=== PATIENT | female | born 1950 | race Caucasian/White ===

== ENCOUNTER 2023-08-23 18:55 | Inpatient (IN) | payer OTHER, MEDICAID ==
[~2023-08-23] VITALS: Ht 154.9 cm; Wt 87.3 kg
[2023-08-23 19:34] VITALS: BP_SYST 83; PULSE 90; RESP 22; TEMP 97.3; O2SAT 98
[2023-08-23] MEDS ORDERED: NACL 0.9% 2,000 ML IV ONE (19:45)
[2023-08-23 19:59] LABS: INR 1.4 (0.8-1.2); PROTHROMBIN TIME 14.5 SECS (9.5-12.5)
[2023-08-23 20:05] LABS: ALANINE AMINOTRANSFERASE 7 U/L (12-78); ALBUMIN 1.6 g/dL (3.4-4.8); ANION GAP 15 (5-15); ASPARTATE AMINOTRANSFERASE 21 U/L (10-37); CALCIUM 8.6 mg/dL (8.4-11.0); CARBON DIOXIDE 16 mmol/L (23-29); CHLORIDE 103 mmol/L (98-107); CREATINE KINASE, TOTAL 28 U/L (26-192); CREATININE 5.83 mg/dL (0.55-1.30); GLUCOSE 162 mg/dL (74-106); SODIUM SERUM 134 mmol/L (136-145); TOTAL BILIRUBIN 1.5 mg/dL (0.0-1.0); TOTAL PROTEIN, SERUM 6.5 g/dL (6.4-8.3)
[2023-08-23 20:19] LABS: BASOPHILS # (AUTO) 0.1 K/uL (0.0-0.2); BASOPHILS % (AUTO) 0.4 % (0.0-2.0); EOSINOPHILS # (AUTO) 0.1 K/uL (0.0-0.4); EOSINOPHILS % (AUTO) 0.4 % (0.0-4.0); HEMOGLOBIN 9.4 g/dL (12.0-16.0); LYMPHOCYTES # (AUTO) 2.5 K/uL (1.0-5.5); LYMPHOCYTES % (AUTO) 20.2 % (20.5-51.5); MEAN CORPUSCULAR HEMOGLOBIN 30 pg (27-31); MEAN CORPUSCULAR HGB CONC 31 % (32-36); MEAN CORPUSCULAR VOLUME 95 fL (79.0-98.0); MONOCYTES # (AUTO) 1.1 K/uL (0.0-1.0); MONOCYTES % (AUTO) 8.5 % (1.7-9.3); NEUTROPHILS # (AUTO) 8.7 K/uL (1.8-7.7); NEUTROPHILS % (AUTO) 70.5 % (40.0-70.0); PLATELET COUNT (AUTO) 596 K/uL (130-430); RED BLOOD CELL COUNT(AUTO) 3.14 MIL/uL (4.2-6.2); RED CELL DISTRIBUTION WIDTH 15.8 % (9.0-15.0); WHITE BLOOD COUNT (AUTO) 12.4 K/uL (4.8-10.8)
[2023-08-23 20:37] LABS: POTASSIUM 6.2 mmol/L (3.5-5.1); UREA NITROGEN, BLOOD 109 mg/dL (8-21)
[2023-08-23] MEDS ORDERED: KETAMINE HCL IN 0.9 % NACL 50 MG/5 ML SYRINGE ONE (20:45)
[2023-08-23] MEDS ORDERED: KETAMINE HCL IN 0.9 % NACL 50 MG/5 ML SYRINGE IVP ONE (20:45)
[2023-08-23] MEDS ORDERED: NOREPINEPHRINE BITARTRATE 4 MG in NS 246 ML IV ONE (20:45)
[2023-08-23] MEDS ORDERED: NOREPINEPHRINE 4 MG/4 ML VIAL IV ONE (20:46)
[2023-08-23 21:15] LABS: BILIRUBIN,URINE NEGATIVE (NEGATIVE); BLOOD, URINE 2+ (NEGATIVE); CLARITY/URINE Turbid (CLEAR); GLUCOSE,URINE NEGATIVE (NEGATIVE); KETONES,URINE 1+ (NEGATIVE); LEUKOCYTE ESTERASE ,URINE 3+ (NEGATIVE); NITRITE, URINE NEGATIVE (NEGATIVE); PH,URINE 5.5 (5.0-8.0); PROTEIN URINE 3+ (NEGATIVE); UROBILINOGEN,URINE 0.2 (0.2-1.0)
[2023-08-23] MEDS ORDERED: SODIUM POLYSTYRENE SULFONATE 15 GM/60 ML UDBTL PO ONE ×2 (21:30→22:00)
[2023-08-23] MEDS ORDERED: DEXTROSE 50% JECT 50 ML DISP.SYRIN IVP ONE (21:30)
[2023-08-23] MEDS ORDERED: INSULIN REGULAR, HUMAN 10 UNITS/0.1 ML, 3 ML VIAL IVP ONE (21:30)
[2023-08-23] MEDS ORDERED: SODIUM BICARBONATE 8.4% JECT 50 MEQ/50 ML SYRINGE IVP ONE (21:30)
[2023-08-23] MEDS ORDERED: LORazepam 2 MG/ML VIAL IVP ONE (21:30)
[2023-08-23] MEDS ORDERED: cefTRIAXone 1 GM in D5W 50 ML IV ONE (21:45)
[2023-08-23 21:53] LABS: COLOR,URINE BROWN (YELLOW)
[2023-08-23] MEDS ORDERED: MULT-1117 PO (21:54)
[2023-08-23] MEDS ORDERED: FLUT10.67 NAS (21:54)
[2023-08-23] MEDS ORDERED: LISI10TA29 PO (21:54)
[2023-08-23] MEDS ORDERED: NA P230E RC (21:54)
[2023-08-23] MEDS ORDERED: [UNRECOGNIZED DRUG - CODE] PO (21:54)
[2023-08-23] MEDS ORDERED: PANT20TA2 PO (21:54)
[2023-08-23] MEDS ORDERED: SSREG (21:54)
[2023-08-23] MEDS ORDERED: CALC-740 PO (21:54)
[2023-08-23] MEDS ORDERED: PREG50CA64 PO (21:54)
[2023-08-23] MEDS ORDERED: TRAM50TA PO (21:54)
[2023-08-23] MEDS ORDERED: CIPR-260 PO (21:54)
[2023-08-23] MEDS ORDERED: DIPH25TA62 PO (21:54)
[2023-08-23] MEDS ORDERED: ASCO500C18 PO (21:54)
[2023-08-23] MEDS ORDERED: BISA10SU77 (21:54)
[2023-08-23] MEDS ORDERED: MOM PO (21:54)
[2023-08-23] MEDS ORDERED: LIP20 PO (21:54)
[2023-08-23] MEDS ORDERED: LORA10TA7 PO (21:54)
[2023-08-23] MEDS ORDERED: IPRA3AMP19 INH (21:54)
[2023-08-23] MEDS ORDERED: FENO145T PO (21:54)
[2023-08-23] MEDS ORDERED: cefTRIAXone 1 GM VIAL ONE (21:56)
[2023-08-23] MEDS ORDERED: POTASSIUM CHLORIDE 10 MEQ in NACL 0.9% 1,000 ML IV SCH (22:00)
[2023-08-23 22:11] LABS: BACTERIA,URINE MANY /HPF (None Seen); RBC,URINE 20-50 /HPF (0-3); WBC,URINE >100 /HPF (0-3)
[2023-08-23 22:12] LABS: MUCUS,URINE None Seen /LPF (None Seen)
[2023-08-23 22:35] VITALS: BP_SYST 96; PULSE 100; RESP 16; TEMP 97.7; O2SAT 99
[2023-08-23 23:00] VITALS: BP_SYST 92; PULSE 99; RESP 14; TEMP 97.7; O2SAT 100
[2023-08-24] VITALS (28 sets, daily range): BP systolic 67–130; PULSE 60–106; RESP 11–21; TEMP 96.9–97.9; O2SAT 93–100
[2023-08-24] MEDS ORDERED: NOREPINEPHRINE 4 MG/4 ML VIAL IV ONE ×2 (00:19→05:24)
[2023-08-24] MEDS: PANTOPRAZOLE SODIUM 40 MG/VIAL (PROTONIX) IVP SCH ×3 (00:22→20:06)
[2023-08-24] MEDS: D5NS 1,000 ML IV SCH ×4 (00:23→17:30)
[2023-08-24] MEDS: INSULIN REGULAR, HUMAN 100 UNITS/ML, 3 ML VIAL (humuLIN R) SUBCUT PRN ×5 (00:40→23:41)
[2023-08-24] MEDS ORDERED: CEFEPIME 1 GM/VIAL (MAXIPIME) ONE (00:59)
[2023-08-24] MEDS: CEFEPIME 1 GM in D5W 50 ML IV SCH ×3 (01:31→20:06)
[2023-08-24] MEDS: LevALBUTEROL HCL 1.25 MG/0.5 ML *CONC.* VIAL.NEB (XOPENEX CONC.) INH SCH ×4 (01:58→19:47)
[2023-08-24 06:05] LABS: BASOPHILS # (AUTO) 0.1 K/uL (0.0-0.2); BASOPHILS % (AUTO) 0.5 % (0.0-2.0); EOSINOPHILS # (AUTO) 0.1 K/uL (0.0-0.4); EOSINOPHILS % (AUTO) 0.5 % (0.0-4.0); HEMATOCRIT 31.2 % (36-48); HEMOGLOBIN 9.4 g/dL (12.0-16.0); LYMPHOCYTES # (AUTO) 2.6 K/uL (1.0-5.5); LYMPHOCYTES % (AUTO) 16.9 % (20.5-51.5); MEAN CORPUSCULAR HEMOGLOBIN 29 pg (27-31); MEAN CORPUSCULAR HGB CONC 30 % (32-36); MEAN CORPUSCULAR VOLUME 98 fL (79.0-98.0); MONOCYTES # (AUTO) 1.4 K/uL (0.0-1.0); MONOCYTES % (AUTO) 9.1 % (1.7-9.3); NEUTROPHILS # (AUTO) 11.1 K/uL (1.8-7.7); PLATELET COUNT (AUTO) 667 K/uL (130-430); RED CELL DISTRIBUTION WIDTH 16.4 % (9.0-15.0); WHITE BLOOD COUNT (AUTO) 15.3 K/uL (4.8-10.8)
[2023-08-24] MEDS: NOREPINEPHRINE BITARTRATE 4 MG in NS 246 ML IV PRN ×3 (06:12→12:34)
[2023-08-24 06:22] LABS: ANION GAP 17 (5-15); CARBON DIOXIDE 16 mmol/L (23-29); CHLORIDE 109 mmol/L (98-107); CREATININE 5.73 mg/dL (0.55-1.30); GLUCOSE 328 mg/dL (74-106); POTASSIUM 5.4 mmol/L (3.5-5.1); SODIUM SERUM 142 mmol/L (136-145); UREA NITROGEN, BLOOD 97 mg/dL (8-21)
[2023-08-24] MEDS ORDERED: SODIUM BICARBONATE 8.4% JECT 50 MEQ/50 ML SYRINGE IVP ONE (09:15)
[2023-08-24] MEDS ORDERED: SODIUM POLYSTYRENE SULFONATE 15 GM/60 ML UDBTL PO ONE (09:15)
[2023-08-24] MEDS: NOREPINEPHRINE BITARTRATE 8 MG in NS 242 ML IV PRN ×3 (15:33→22:39)
[2023-08-24] MEDS: ENOXAPARIN SODIUM 30 MG/0.3 ML SYRINGE SUBCUT SCH (20:06)
[2023-08-25] VITALS (27 sets, daily range): BP systolic 99–133; PULSE 97–109; RESP 13–22; TEMP 97.3–98; O2SAT 89–100
[2023-08-25] MEDS: D5NS 1,000 ML IV SCH ×4 (00:26→17:43)
[2023-08-25] MEDS: LevALBUTEROL HCL 1.25 MG/0.5 ML *CONC.* VIAL.NEB (XOPENEX CONC.) INH SCH ×4 (00:55→19:15)
[2023-08-25] MEDS: INSULIN REGULAR, HUMAN 100 UNITS/ML, 3 ML VIAL (humuLIN R) SUBCUT PRN ×3 (05:05→17:58)
[2023-08-25] MEDS: NOREPINEPHRINE BITARTRATE 8 MG in NS 242 ML IV PRN ×2 (05:09→11:36)
[2023-08-25 05:33] LABS: BASOPHILS % (AUTO) 0.2 % (0.0-2.0); EOSINOPHILS # (AUTO) 0.1 K/uL (0.0-0.4); EOSINOPHILS % (AUTO) 0.8 % (0.0-4.0); HEMATOCRIT 29.2 % (36-48); HEMOGLOBIN 8.7 g/dL (12.0-16.0); LYMPHOCYTES # (AUTO) 1.8 K/uL (1.0-5.5); LYMPHOCYTES % (AUTO) 12.4 % (20.5-51.5); MEAN CORPUSCULAR HEMOGLOBIN 29 pg (27-31); MEAN CORPUSCULAR HGB CONC 30 % (32-36); MEAN CORPUSCULAR VOLUME 97 fL (79.0-98.0); MONOCYTES # (AUTO) 1.4 K/uL (0.0-1.0); MONOCYTES % (AUTO) 9.3 % (1.7-9.3); NEUTROPHILS # (AUTO) 11.3 K/uL (1.8-7.7); NEUTROPHILS % (AUTO) 77.3 % (40.0-70.0); PLATELET COUNT (AUTO) 587 K/uL (130-430); RED CELL DISTRIBUTION WIDTH 16.4 % (9.0-15.0); WHITE BLOOD COUNT (AUTO) 14.6 K/uL (4.8-10.8)
[2023-08-25 05:59] LABS: ALANINE AMINOTRANSFERASE 20 U/L (12-78); ALBUMIN 1.3 g/dL (3.4-4.8); ANION GAP 17 (5-15); ASPARTATE AMINOTRANSFERASE 33 U/L (10-37); CALCIUM 7.4 mg/dL (8.4-11.0); CARBON DIOXIDE 17 mmol/L (23-29); CHLORIDE 115 mmol/L (98-107); CREATININE 5.73 mg/dL (0.55-1.30); GLUCOSE 241 mg/dL (74-106); POTASSIUM 4.3 mmol/L (3.5-5.1); SODIUM SERUM 149 mmol/L (136-145); TOTAL BILIRUBIN 1.1 mg/dL (0.0-1.0); UREA NITROGEN, BLOOD 89 mg/dL (8-21)
[2023-08-25] MEDS: CEFEPIME 1 GM in D5W 50 ML IV SCH ×2 (08:22→20:22)
[2023-08-25] MEDS: PANTOPRAZOLE SODIUM 40 MG/VIAL (PROTONIX) IVP SCH ×2 (08:22→20:22)
[2023-08-25] MEDS: metroNIDAZOLE 250 mg/NS 50 ML IV SCH ×2 (14:58→21:35)
[2023-08-25] MEDS: ENOXAPARIN SODIUM 30 MG/0.3 ML SYRINGE SUBCUT SCH (20:30)
[2023-08-25] MEDS ORDERED: MUPIROCIN 1 GM OIN.PF.APP NS SCH (21:00)
[2023-08-25] MEDS: MUPIROCIN 2% TOPICAL OINTMENT 22 GM NS SCH (21:35)
[2023-08-26] VITALS (30 sets, daily range): BP systolic 83–128; PULSE 69–113; RESP 15–28; TEMP 97.1–97.7; O2SAT 90–100
[2023-08-26] MEDS: LevALBUTEROL HCL 1.25 MG/0.5 ML *CONC.* VIAL.NEB (XOPENEX CONC.) INH SCH ×4 (01:10→19:36)
[2023-08-26] MEDS: NOREPINEPHRINE BITARTRATE 8 MG in NS 242 ML IV PRN ×2 (01:21→18:16)
[2023-08-26] MEDS: D5NS 1,000 ML IV SCH ×4 (01:22→22:33)
[2023-08-26] MEDS: metroNIDAZOLE 250 mg/NS 50 ML IV SCH (05:09)
[2023-08-26] MEDS: INSULIN REGULAR, HUMAN 100 UNITS/ML, 3 ML VIAL (humuLIN R) SUBCUT PRN ×3 (05:12→18:16)
[2023-08-26 05:27] LABS: BASOPHILS # (AUTO) 0.1 K/uL (0.0-0.2); BASOPHILS % (AUTO) 0.5 % (0.0-2.0); EOSINOPHILS # (AUTO) 0.1 K/uL (0.0-0.4); EOSINOPHILS % (AUTO) 0.4 % (0.0-4.0); HEMATOCRIT 28.7 % (36-48); HEMOGLOBIN 8.5 g/dL (12.0-16.0); LYMPHOCYTES # (AUTO) 1.9 K/uL (1.0-5.5); LYMPHOCYTES % (AUTO) 10.3 % (20.5-51.5); MEAN CORPUSCULAR HEMOGLOBIN 29 pg (27-31); MEAN CORPUSCULAR HGB CONC 30 % (32-36); MEAN CORPUSCULAR VOLUME 98 fL (79.0-98.0); MONOCYTES # (AUTO) 0.8 K/uL (0.0-1.0); MONOCYTES % (AUTO) 4.5 % (1.7-9.3); NEUTROPHILS # (AUTO) 15.5 K/uL (1.8-7.7); NEUTROPHILS % (AUTO) 84.3 % (40.0-70.0); PLATELET COUNT (AUTO) 437 K/uL (130-430); RED BLOOD CELL COUNT(AUTO) 2.93 MIL/uL (4.2-6.2); RED CELL DISTRIBUTION WIDTH 16.6 % (9.0-15.0); WHITE BLOOD COUNT (AUTO) 18.4 K/uL (4.8-10.8)
[2023-08-26 06:19] LABS: ALANINE AMINOTRANSFERASE 21 U/L (12-78); ALBUMIN 1.1 g/dL (3.4-4.8); ANION GAP 18 (5-15); ASPARTATE AMINOTRANSFERASE 36 U/L (10-37); CARBON DIOXIDE 15 mmol/L (23-29); CHLORIDE 117 mmol/L (98-107); CREATININE 5.84 mg/dL (0.55-1.30); GLUCOSE 257 mg/dL (74-106); POTASSIUM 3.6 mmol/L (3.5-5.1); SODIUM SERUM 150 mmol/L (136-145); TOTAL BILIRUBIN 0.8 mg/dL (0.0-1.0); TOTAL PROTEIN, SERUM 5.4 g/dL (6.4-8.3); UREA NITROGEN, BLOOD 87 mg/dL (8-21)
[2023-08-26] MEDS: PANTOPRAZOLE SODIUM 40 MG/VIAL (PROTONIX) IVP SCH ×2 (08:08→21:22)
[2023-08-26] MEDS: CEFEPIME 1 GM in D5W 50 ML IV SCH ×2 (08:09→21:22)
[2023-08-26] MEDS: MUPIROCIN 2% TOPICAL OINTMENT 22 GM NS SCH ×2 (08:11→21:23)
[2023-08-26 10:57] LABS: BLOOD GAS BASE EXCESS -18.8 mmol/L (-3.0-3.0); BLOOD GAS PO2 79.4 mmHg (75.0-100.0)
[2023-08-26] MEDS ORDERED: ALBUMIN HUMAN 25% 100 ML IV ONE (11:00)
[2023-08-26 11:02] LABS: ABG O2 SAT% ESTIMATE 87.9 % (94.0-100.0); ALLEN'S TEST POSITIVE (P); BLOOD GAS HCO3 12.8 mmol/L (21.0-27.0); BLOOD GAS PCO2 53.7 mmHg (35.0-45.0); BLOOD GAS PH 6.995 (7.350-7.450)
[2023-08-26] MEDS ORDERED: LINEZOLID 300 ML IV ONE (11:30)
[2023-08-26] MEDS ORDERED: SODIUM BICARBONATE 8.4% JECT 50 MEQ/50 ML SYRINGE ONE (11:56)
[2023-08-26] MEDS ORDERED: SODIUM BICARBONATE 8.4% JECT 50 MEQ/50 ML SYRINGE IVP ONE (12:00)
[2023-08-26] MEDS ORDERED: ETOMIDATE 20 MG/ 10 ML VIAL (AMIDATE) IVP ONE (13:11)
[2023-08-26] MEDS ORDERED: VECURONIUM BROMIDE 10 MG/VIAL (NORCURON) IVP ONE (13:11)
[2023-08-26 13:50] LABS: BLOOD GAS PCO2 24.9 mmHg (35.0-45.0); BLOOD GAS PH 7.441 (7.350-7.450); BLOOD GAS PO2 146.4 mmHg (75.0-100.0)
[2023-08-26 13:55] LABS: ALLEN'S TEST POSITIVE (P); BLOOD GAS BASE EXCESS -5.6 mmol/L (-3.0-3.0); BLOOD GAS HCO3 16.6 mmol/L (21.0-27.0)
[2023-08-26] MEDS ORDERED: HEPARIN SODIUM,PORCINE 5,000 UNITS/ML VIAL MC ONE (15:30)
[2023-08-26] MEDS: LINEZOLID 300 ML IV SCH (20:05)
[2023-08-26] MEDS ORDERED: MENTHOL/ZINC OXIDE 113 GM OINT. TP PRN (20:45)
[2023-08-26] MEDS: ENOXAPARIN SODIUM 30 MG/0.3 ML SYRINGE SUBCUT SCH (21:22)
[2023-08-27] VITALS (31 sets, daily range): BP systolic 14–156; PULSE 68–116; RESP 22–30; TEMP 97.3–98.9; O2SAT 95–99
[2023-08-27] MEDS: LevALBUTEROL HCL 1.25 MG/0.5 ML *CONC.* VIAL.NEB (XOPENEX CONC.) INH SCH ×4 (01:12→19:25)
[2023-08-27 05:49] LABS: BASOPHILS # (AUTO) 0.1 K/uL (0.0-0.2); BASOPHILS % (AUTO) 0.4 % (0.0-2.0); EOSINOPHILS # (AUTO) 0.1 K/uL (0.0-0.4); EOSINOPHILS % (AUTO) 0.4 % (0.0-4.0); HEMATOCRIT 25.2 % (36-48); HEMOGLOBIN 7.8 g/dL (12.0-16.0); LYMPHOCYTES % (AUTO) 12.1 % (20.5-51.5); MEAN CORPUSCULAR HEMOGLOBIN 29 pg (27-31); MEAN CORPUSCULAR HGB CONC 31 % (32-36); MEAN CORPUSCULAR VOLUME 93 fL (79.0-98.0); NEUTROPHILS # (AUTO) 13.7 K/uL (1.8-7.7); NEUTROPHILS % (AUTO) 81.1 % (40.0-70.0); PLATELET COUNT (AUTO) 388 K/uL (130-430); RED BLOOD CELL COUNT(AUTO) 2.71 MIL/uL (4.2-6.2); RED CELL DISTRIBUTION WIDTH 16.5 % (9.0-15.0)
[2023-08-27 05:50] LABS: ANION GAP 15 (5-15); CARBON DIOXIDE 21 mmol/L (23-29); CHLORIDE 105 mmol/L (98-107); GLUCOSE 366 mg/dL (74-106); SODIUM SERUM 141 mmol/L (136-145); UREA NITROGEN, BLOOD 51 mg/dL (8-21)
[2023-08-27 06:02] LABS: POTASSIUM 2.5 mmol/L (3.5-5.1)
[2023-08-27 06:03] LABS: CALCIUM 6.9 mg/dL (8.4-11.0)
[2023-08-27 07:01] LABS: WHITE BLOOD COUNT (AUTO) 16.9 K/uL (4.8-10.8)
[2023-08-27] MEDS ORDERED: CALCIUM GLUC 1 GM/100ML-NACL 100 ML IV ONE (08:00)
[2023-08-27 08:06] LABS: HEPATITIS B SURFACE AG Negative (Negative); HEPATITIS C VIRUS AB Non Reactive (Non Reactive)
[2023-08-27] MEDS ORDERED: CALCIUM GLUCONATE 1 GM in NS 100 ML IV ONE ×2 (08:30→12:15)
[2023-08-27] MEDS: MUPIROCIN 2% TOPICAL OINTMENT 22 GM NS SCH ×2 (09:00→20:51)
[2023-08-27] MEDS: PANTOPRAZOLE SODIUM 40 MG/VIAL (PROTONIX) IVP SCH ×2 (09:00→20:30)
[2023-08-27] MEDS ORDERED: POTASSIUM CHLORIDE 20 MEQ/PKT PACKET PO ONE ×2 (09:00→13:00)
[2023-08-27] MEDS: NOREPINEPHRINE BITARTRATE 8 MG in NS 242 ML IV PRN (09:10)
[2023-08-27 10:05] LABS: ABG O2 SAT% ESTIMATE 97.9 % (94.0-100.0); BLOOD GAS HCO3 18.3 mmol/L (21.0-27.0); BLOOD GAS PCO2 27.1 mmHg (35.0-45.0); BLOOD GAS PH 7.448 (7.350-7.450); BLOOD GAS PO2 100.7 mmHg (75.0-100.0)
[2023-08-27 10:08] LABS: ALLEN'S TEST POSITIVE (P)
[2023-08-27] MEDS: CEFEPIME 1 GM in D5W 50 ML IV SCH ×2 (11:06→20:29)
[2023-08-27] MEDS: LINEZOLID 300 ML IV SCH ×2 (12:19→20:30)
[2023-08-27] MEDS: INSULIN REGULAR, HUMAN 100 UNITS/ML, 3 ML VIAL (humuLIN R) SUBCUT PRN ×2 (13:31→17:38)
[2023-08-27] MEDS: D5NS 1,000 ML IV SCH (13:48)
[2023-08-27] MEDS ORDERED: POTASSIUM CHLORIDE 20 MEQ/PKT PACKET ONE (14:05)
[2023-08-27] MEDS: PROPOFOL DRIP 100 ML IV PRN (15:44)
[2023-08-27] MEDS: ENOXAPARIN SODIUM 30 MG/0.3 ML SYRINGE SUBCUT SCH (20:30)
[2023-08-28] VITALS (36 sets, daily range): BP systolic 92–158; PULSE 61–101; RESP 18–27; TEMP 97–99.5; O2SAT 95–99
[2023-08-28] MEDS: INSULIN REGULAR, HUMAN 100 UNITS/ML, 3 ML VIAL (humuLIN R) SUBCUT PRN ×5 (00:29→23:48)
[2023-08-28] MEDS: LevALBUTEROL HCL 1.25 MG/0.5 ML *CONC.* VIAL.NEB (XOPENEX CONC.) INH SCH ×4 (01:30→19:24)
[2023-08-28] MEDS: PROPOFOL DRIP 100 ML IV PRN ×2 (03:17→20:25)
[2023-08-28 06:52] LABS: BASOPHILS # (AUTO) 0.1 K/uL (0.0-0.2); BASOPHILS % (AUTO) 0.3 % (0.0-2.0); EOSINOPHILS # (AUTO) 0.1 K/uL (0.0-0.4); EOSINOPHILS % (AUTO) 0.5 % (0.0-4.0); HEMOGLOBIN 7.7 g/dL (12.0-16.0); LYMPHOCYTES # (AUTO) 2.7 K/uL (1.0-5.5); LYMPHOCYTES % (AUTO) 12.4 % (20.5-51.5); MEAN CORPUSCULAR HEMOGLOBIN 29 pg (27-31); MEAN CORPUSCULAR HGB CONC 32 % (32-36); MEAN CORPUSCULAR VOLUME 91 fL (79.0-98.0); MONOCYTES # (AUTO) 1.1 K/uL (0.0-1.0); MONOCYTES % (AUTO) 5.2 % (1.7-9.3); NEUTROPHILS # (AUTO) 17.9 K/uL (1.8-7.7); NEUTROPHILS % (AUTO) 81.6 % (40.0-70.0); PLATELET COUNT (AUTO) 455 K/uL (130-430); RED BLOOD CELL COUNT(AUTO) 2.63 MIL/uL (4.2-6.2); RED CELL DISTRIBUTION WIDTH 16.1 % (9.0-15.0)
[2023-08-28 07:23] LABS: ALANINE AMINOTRANSFERASE 18 U/L (12-78); ALBUMIN 1.3 g/dL (3.4-4.8); AMYLASE 19 U/L (0-100); ANION GAP 11 (5-15); ASPARTATE AMINOTRANSFERASE 26 U/L (10-37); CARBON DIOXIDE 25 mmol/L (23-29); CHLORIDE 101 mmol/L (98-107); CREATININE 3.26 mg/dL (0.55-1.30); GLUCOSE 283 mg/dL (74-106); POTASSIUM 3.8 mmol/L (3.5-5.1); SODIUM SERUM 137 mmol/L (136-145); TOTAL BILIRUBIN 0.6 mg/dL (0.0-1.0); TOTAL PROTEIN, SERUM 5.3 g/dL (6.4-8.3); UREA NITROGEN, BLOOD 42 mg/dL (8-21)
[2023-08-28 07:31] LABS: TOTAL IRON BIND. CAPACITY 107 ug/dL (250-450)
[2023-08-28 07:44] LABS: CALCIUM 6.8 mg/dL (8.4-11.0)
[2023-08-28] MEDS: MUPIROCIN 2% TOPICAL OINTMENT 22 GM NS SCH ×2 (08:36→20:26)
[2023-08-28] MEDS: CEFEPIME 1 GM in D5W 50 ML IV SCH ×2 (08:36→20:23)
[2023-08-28] MEDS: PANTOPRAZOLE SODIUM 40 MG/VIAL (PROTONIX) IVP SCH ×2 (08:36→20:26)
[2023-08-28 08:39] LABS: WHITE BLOOD COUNT (AUTO) 21.9 K/uL (4.8-10.8)
[2023-08-28] MEDS ORDERED: CALCIUM GLUCONATE 2 GM in NS 100 ML IV ONE (09:00)
[2023-08-28] MEDS: LINEZOLID 300 ML IV SCH ×2 (09:20→20:23)
[2023-08-28] MEDS: D5NS 1,000 ML IV SCH (09:48)
[2023-08-28] MEDS: ACETAMINOPHEN 325 MG TABLET PO PRN (13:45)
[2023-08-28] MEDS ORDERED: MORPHINE 2 MG/ML INJ. SYRINGE IVP PRN (19:30)
[2023-08-28] MEDS ORDERED: NALOXONE HCL 0.4 MG/ML AMP (NARCAN) IVP PRN ×2 (19:30→19:45)
[2023-08-28] MEDS: ENOXAPARIN SODIUM 30 MG/0.3 ML SYRINGE SUBCUT SCH (20:26)
[2023-08-28] MEDS ORDERED: MEROPENEM 500 MG VIAL IV ONE (23:39)
[2023-08-28] MEDS: MEROPENEM 500 MG in NS 50 ML IV SCH (23:46)
[2023-08-29] VITALS (35 sets, daily range): BP systolic 102–152; PULSE 64–111; RESP 18–25; TEMP 96.9–99.2; O2SAT 94–99
[2023-08-29] MEDS: LevALBUTEROL HCL 1.25 MG/0.5 ML *CONC.* VIAL.NEB (XOPENEX CONC.) INH SCH ×4 (01:33→19:40)
[2023-08-29] MEDS: INSULIN REGULAR, HUMAN 100 UNITS/ML, 3 ML VIAL (humuLIN R) SUBCUT PRN ×2 (06:04→23:52)
[2023-08-29] MEDS: D5NS 1,000 ML IV SCH (06:05)
[2023-08-29] MEDS: PROPOFOL DRIP 100 ML IV PRN (06:12)
[2023-08-29 07:57] LABS: BASOPHILS # (AUTO) 0.1 K/uL (0.0-0.2); BASOPHILS % (AUTO) 0.6 % (0.0-2.0); EOSINOPHILS # (AUTO) 0.5 K/uL (0.0-0.4); EOSINOPHILS % (AUTO) 3.6 % (0.0-4.0); HEMATOCRIT 22.4 % (36-48); HEMOGLOBIN 7.1 g/dL (12.0-16.0); LYMPHOCYTES # (AUTO) 2.9 K/uL (1.0-5.5); LYMPHOCYTES % (AUTO) 20.5 % (20.5-51.5); MEAN CORPUSCULAR HEMOGLOBIN 29 pg (27-31); MEAN CORPUSCULAR HGB CONC 32 % (32-36); MEAN CORPUSCULAR VOLUME 92 fL (79.0-98.0); MONOCYTES # (AUTO) 0.8 K/uL (0.0-1.0); MONOCYTES % (AUTO) 5.8 % (1.7-9.3); NEUTROPHILS # (AUTO) 9.7 K/uL (1.8-7.7); NEUTROPHILS % (AUTO) 69.5 % (40.0-70.0); PLATELET COUNT (AUTO) 324 K/uL (130-430); RED BLOOD CELL COUNT(AUTO) 2.45 MIL/uL (4.2-6.2); RED CELL DISTRIBUTION WIDTH 16.2 % (9.0-15.0)
[2023-08-29 08:37] LABS: ALANINE AMINOTRANSFERASE 16 U/L (12-78); ALBUMIN 1.1 g/dL (3.4-4.8); ANION GAP 15 (5-15); ASPARTATE AMINOTRANSFERASE 23 U/L (10-37); CALCIUM 7.1 mg/dL (8.4-11.0); CARBON DIOXIDE 21 mmol/L (23-29); CHLORIDE 101 mmol/L (98-107); CREATININE 3.74 mg/dL (0.55-1.30); GLUCOSE 236 mg/dL (74-106); POTASSIUM 3.3 mmol/L (3.5-5.1); SODIUM SERUM 137 mmol/L (136-145); TOTAL BILIRUBIN 0.4 mg/dL (0.0-1.0); TOTAL PROTEIN, SERUM 4.9 g/dL (6.4-8.3); UREA NITROGEN, BLOOD 52 mg/dL (8-21)
[2023-08-29] MEDS: MEROPENEM 500 MG in NS 50 ML IV SCH ×2 (09:00→21:20)
[2023-08-29] MEDS: MUPIROCIN 2% TOPICAL OINTMENT 22 GM NS SCH ×2 (09:00→21:22)
[2023-08-29] MEDS: PANTOPRAZOLE SODIUM 40 MG/VIAL (PROTONIX) IVP SCH ×2 (09:00→21:21)
[2023-08-29] MEDS: LINEZOLID 300 ML IV SCH ×2 (09:00→22:06)
[2023-08-29] MEDS ORDERED: HEPARIN SODIUM,PORCINE 5,000 UNITS/ML VIAL ONE (09:41)
[2023-08-29 14:54] LABS: ABG O2 SAT% ESTIMATE 96.7 % (94.0-100.0); BLOOD GAS BASE EXCESS 3.6 mmol/L (-3.0-3.0); BLOOD GAS HCO3 26.2 mmol/L (21.0-27.0); BLOOD GAS PCO2 33.8 mmHg (35.0-45.0); BLOOD GAS PO2 78.8 mmHg (75.0-100.0)
[2023-08-29 14:57] LABS: ALLEN'S TEST POSITIVE (P); BLOOD GAS PH 7.508 (7.350-7.450)
[2023-08-29] MEDS: EPOETIN ALFA-EPBX 4,000 UNITS/ML VIAL SUBCUT SCH (17:00)
[2023-08-29] MEDS: ENOXAPARIN SODIUM 30 MG/0.3 ML SYRINGE SUBCUT SCH (21:21)
[2023-08-30] VITALS (32 sets, daily range): BP systolic 115–153; PULSE 71–98; RESP 11–26; TEMP 96.6–98.8; O2SAT 93–99
[2023-08-30] MEDS: LevALBUTEROL HCL 1.25 MG/0.5 ML *CONC.* VIAL.NEB (XOPENEX CONC.) INH SCH ×4 (00:29→19:53)
[2023-08-30] MEDS: D5NS 1,000 ML IV SCH ×3 (01:48→21:09)
[2023-08-30 02:07] LABS: FOLATE (FOLIC ACID) 4.9 ng/mL (>3.0)
[2023-08-30] MEDS: INSULIN REGULAR, HUMAN 100 UNITS/ML, 3 ML VIAL (humuLIN R) SUBCUT PRN ×2 (05:24→11:10)
[2023-08-30 06:02] LABS: BASOPHILS % (AUTO) 0.3 % (0.0-2.0); EOSINOPHILS # (AUTO) 0.6 K/uL (0.0-0.4); EOSINOPHILS % (AUTO) 3.9 % (0.0-4.0); HEMATOCRIT 23.9 % (36-48); HEMOGLOBIN 7.6 g/dL (12.0-16.0); LYMPHOCYTES # (AUTO) 2.7 K/uL (1.0-5.5); LYMPHOCYTES % (AUTO) 18.9 % (20.5-51.5); MEAN CORPUSCULAR HEMOGLOBIN 29 pg (27-31); MEAN CORPUSCULAR HGB CONC 32 % (32-36); MEAN CORPUSCULAR VOLUME 91 fL (79.0-98.0); MONOCYTES # (AUTO) 0.9 K/uL (0.0-1.0); MONOCYTES % (AUTO) 6.1 % (1.7-9.3); NEUTROPHILS % (AUTO) 70.8 % (40.0-70.0); PLATELET COUNT (AUTO) 300 K/uL (130-430); RED BLOOD CELL COUNT(AUTO) 2.62 MIL/uL (4.2-6.2); RED CELL DISTRIBUTION WIDTH 15.7 % (9.0-15.0); WHITE BLOOD COUNT (AUTO) 14.2 K/uL (4.8-10.8)
[2023-08-30 06:19] LABS: ALANINE AMINOTRANSFERASE 18 U/L (12-78); ALBUMIN 1.3 g/dL (3.4-4.8); ANION GAP 10 (5-15); ASPARTATE AMINOTRANSFERASE 25 U/L (10-37); CALCIUM 7.6 mg/dL (8.4-11.0); CARBON DIOXIDE 27 mmol/L (23-29); CHLORIDE 102 mmol/L (98-107); CREATININE 3.03 mg/dL (0.55-1.30); GLUCOSE 233 mg/dL (74-106); POTASSIUM 3.4 mmol/L (3.5-5.1); SODIUM SERUM 139 mmol/L (136-145); TOTAL BILIRUBIN 0.4 mg/dL (0.0-1.0); TOTAL PROTEIN, SERUM 5.4 g/dL (6.4-8.3); UREA NITROGEN, BLOOD 38 mg/dL (8-21)
[2023-08-30] MEDS: MEROPENEM 500 MG in NS 50 ML IV SCH ×2 (08:46→19:52)
[2023-08-30] MEDS: LINEZOLID 300 ML IV SCH (08:46)
[2023-08-30] MEDS: PANTOPRAZOLE SODIUM 40 MG/VIAL (PROTONIX) IVP SCH ×2 (08:46→19:53)
[2023-08-30] MEDS: MUPIROCIN 2% TOPICAL OINTMENT 22 GM NS SCH (09:12)
[2023-08-30] MEDS ORDERED: POTASSIUM CHLORIDE 20 MEQ/PKT PACKET PO ONE (11:30)
[2023-08-30] MEDS ORDERED: HEPARIN SODIUM,PORCINE 5,000 UNITS/ML VIAL ONE ×2 (16:58→17:00)
[2023-08-30] MEDS: MORPHINE 2 MG/ML INJ. SYRINGE IVP PRN (19:53)
[2023-08-31] VITALS (27 sets, daily range): BP systolic 108–153; PULSE 75–93; RESP 15–22; TEMP 97.2–98.1; O2SAT 87–100
[2023-08-31] MEDS: MORPHINE 2 MG/ML INJ. SYRINGE IVP PRN ×2 (00:03→04:04)
[2023-08-31] MEDS: LevALBUTEROL HCL 1.25 MG/0.5 ML *CONC.* VIAL.NEB (XOPENEX CONC.) INH SCH ×4 (01:00→19:30)
[2023-08-31 05:55] LABS: BASOPHILS # (AUTO) 0.1 K/uL (0.0-0.2); BASOPHILS % (AUTO) 0.6 % (0.0-2.0); EOSINOPHILS # (AUTO) 0.5 K/uL (0.0-0.4); EOSINOPHILS % (AUTO) 3.3 % (0.0-4.0); LYMPHOCYTES # (AUTO) 3.3 K/uL (1.0-5.5); MEAN CORPUSCULAR HEMOGLOBIN 29 pg (27-31); MEAN CORPUSCULAR HGB CONC 31 % (32-36); MEAN CORPUSCULAR VOLUME 93 fL (79.0-98.0); MONOCYTES # (AUTO) 0.9 K/uL (0.0-1.0); MONOCYTES % (AUTO) 5.4 % (1.7-9.3); NEUTROPHILS # (AUTO) 11.6 K/uL (1.8-7.7); NEUTROPHILS % (AUTO) 70.7 % (40.0-70.0); PLATELET COUNT (AUTO) 261 K/uL (130-430); RED BLOOD CELL COUNT(AUTO) 2.29 MIL/uL (4.2-6.2); RED CELL DISTRIBUTION WIDTH 15.5 % (9.0-15.0); WHITE BLOOD COUNT (AUTO) 16.4 K/uL (4.8-10.8)
[2023-08-31 06:00] LABS: HEMOGLOBIN 6.6 g/dL (12.0-16.0)
[2023-08-31 06:04] LABS: HEMATOCRIT 21.4 % (36-48)
[2023-08-31 06:10] LABS: ALANINE AMINOTRANSFERASE 20 U/L (12-78); ALBUMIN 1.3 g/dL (3.4-4.8); ANION GAP 6 (5-15); ASPARTATE AMINOTRANSFERASE 30 U/L (10-37); CARBON DIOXIDE 31 mmol/L (23-29); CHLORIDE 103 mmol/L (98-107); CREATININE 2.52 mg/dL (0.55-1.30); GLUCOSE 175 mg/dL (74-106); SODIUM SERUM 140 mmol/L (136-145); TOTAL BILIRUBIN 0.4 mg/dL (0.0-1.0); UREA NITROGEN, BLOOD 32 mg/dL (8-21)
[2023-08-31] MEDS ORDERED: HEPARIN SODIUM,PORCINE 5,000 UNITS/ML VIAL MC SCH (09:00)
[2023-08-31] MEDS: PANTOPRAZOLE SODIUM 40 MG/VIAL (PROTONIX) IVP SCH ×2 (09:04→20:56)
[2023-08-31] MEDS: MEROPENEM 500 MG in NS 50 ML IV SCH ×2 (09:04→20:55)
[2023-08-31] MEDS: ACETAMINOPHEN 325 MG TABLET PO PRN ×2 (09:05→10:17)
[2023-08-31] MEDS: traMADol HCL HCL 50 MG TABLET (ULTRAM) PO PRN (13:14)
[2023-08-31] MEDS: FLUCONAZOLE 100 mg/ NS 50 ML IV SCH (13:15)
[2023-08-31] MEDS: EPOETIN ALFA-EPBX 4,000 UNITS/ML VIAL SUBCUT SCH (17:23)
[2023-08-31] MEDS: INSULIN REGULAR, HUMAN 100 UNITS/ML, 3 ML VIAL (humuLIN R) SUBCUT PRN (17:25)
[2023-08-31 19:44] LABS: HEMATOCRIT 31.3 % (36-48); HEMOGLOBIN 10.1 g/dL (12.0-16.0); MEAN CORPUSCULAR HEMOGLOBIN 29 pg (27-31); MEAN CORPUSCULAR HGB CONC 32 % (32-36); MEAN CORPUSCULAR VOLUME 90 fL (79.0-98.0); PLATELET COUNT (AUTO) 218 K/uL (130-430); RED BLOOD CELL COUNT(AUTO) 3.48 MIL/uL (4.2-6.2); RED CELL DISTRIBUTION WIDTH 15.6 % (9.0-15.0); WHITE BLOOD COUNT (AUTO) 14.3 K/uL (4.8-10.8)
[2023-08-31 21:28] LABS: BAND % (MANUAL) 1 % (0-6); BASOPHILS % (MANUAL) 0 % (0-2); EOSINOPHILS % (MANUAL) 8 % (0-7); LYMPHOCYTES % (MANUAL) 13 % (20-46); MONOCYTES % (MANUAL) 7 % (0-11); PLATELET ESTIMATE ADEQUATE (ADEQUATE); POLYCHROMASIA 1+
[2023-08-31 21:29] LABS: ANISOCYTOSIS 1+; OVALOCYTES FEW; STOMATOCYTES FEW; TEAR DROP CELLS MODERATE
[2023-09-01] VITALS (27 sets, daily range): BP systolic 122–171; PULSE 79–96; RESP 14–21; TEMP 96.7–97.9; O2SAT 89–98
[2023-09-01] MEDS: LevALBUTEROL HCL 1.25 MG/0.5 ML *CONC.* VIAL.NEB (XOPENEX CONC.) INH SCH ×4 (01:10→19:41)
[2023-09-01] MEDS: traMADol HCL HCL 50 MG TABLET (ULTRAM) PO PRN ×3 (05:03→13:35)
[2023-09-01 05:07] LABS: BASOPHILS # (AUTO) 0.1 K/uL (0.0-0.2); BASOPHILS % (AUTO) 0.5 % (0.0-2.0); EOSINOPHILS # (AUTO) 0.7 K/uL (0.0-0.4); EOSINOPHILS % (AUTO) 4.6 % (0.0-4.0); HEMOGLOBIN 9.6 g/dL (12.0-16.0); LYMPHOCYTES # (AUTO) 2.9 K/uL (1.0-5.5); LYMPHOCYTES % (AUTO) 20.1 % (20.5-51.5); MEAN CORPUSCULAR HEMOGLOBIN 29 pg (27-31); MEAN CORPUSCULAR HGB CONC 32 % (32-36); MEAN CORPUSCULAR VOLUME 90 fL (79.0-98.0); MONOCYTES # (AUTO) 0.8 K/uL (0.0-1.0); MONOCYTES % (AUTO) 5.8 % (1.7-9.3); PLATELET COUNT (AUTO) 201 K/uL (130-430); RED BLOOD CELL COUNT(AUTO) 3.35 MIL/uL (4.2-6.2); RED CELL DISTRIBUTION WIDTH 16.3 % (9.0-15.0); WHITE BLOOD COUNT (AUTO) 14.5 K/uL (4.8-10.8)
[2023-09-01 05:29] LABS: ALANINE AMINOTRANSFERASE 18 U/L (12-78); ALBUMIN 1.5 g/dL (3.4-4.8); ANION GAP 9 (5-15); ASPARTATE AMINOTRANSFERASE 24 U/L (10-37); CALCIUM 7.3 mg/dL (8.4-11.0); CARBON DIOXIDE 28 mmol/L (23-29); CHLORIDE 104 mmol/L (98-107); CREATININE 3.04 mg/dL (0.55-1.30); GLUCOSE 149 mg/dL (74-106); PHOSPHORUS 4.2 mg/dL (2.7-4.5); POTASSIUM 3.9 mmol/L (3.5-5.1); SODIUM SERUM 141 mmol/L (136-145); TOTAL BILIRUBIN 0.5 mg/dL (0.0-1.0); TOTAL PROTEIN, SERUM 5.2 g/dL (6.4-8.3); TRIGLYCERIDES 323 mg/dL (30-150); UREA NITROGEN, BLOOD 38 mg/dL (8-21)
[2023-09-01 07:06] LABS: QUANTIFERON TB GOLD Negative (Negative)
[2023-09-01] MEDS: PANTOPRAZOLE SODIUM 40 MG/VIAL (PROTONIX) IVP SCH ×2 (09:53→21:27)
[2023-09-01] MEDS: MEROPENEM 500 MG in NS 50 ML IV SCH ×2 (09:53→21:26)
[2023-09-01] MEDS: D5NS 1,000 ML IV SCH (10:35)
[2023-09-01] MEDS: FLUCONAZOLE 100 mg/ NS 50 ML IV SCH (11:41)
[2023-09-01] MEDS: INSULIN REGULAR, HUMAN 100 UNITS/ML, 3 ML VIAL (humuLIN R) SUBCUT PRN ×2 (11:57→18:24)
[2023-09-01 13:06] LABS: HEPATITIS B SURFACE AG Negative (Negative)
[2023-09-01] MEDS ORDERED: *TPN PER PHARMACY XX PRN (21:00)
[2023-09-01] MEDS ORDERED: MAGNESIUM SULFATE IV SCH ×6 (21:00)
[2023-09-01] MEDS ORDERED: TRACE ELEMENTS IV SCH ×6 (21:00)
[2023-09-01] MEDS ORDERED: TPN CENTRAL IV SCH ×6 (21:00)
[2023-09-01] MEDS ORDERED: MVI IV SCH ×6 (21:00)
[2023-09-01] MEDS ORDERED: [UNRECOGNIZED DRUG - OTHER] IV SCH ×6 (21:00)
[2023-09-02] VITALS (9 sets, daily range): BP systolic 122–166; PULSE 73–93; RESP 16–19; TEMP 97.1–98.6; O2SAT 93–97
[2023-09-02] MEDS: INSULIN REGULAR, HUMAN 100 UNITS/ML, 3 ML VIAL (humuLIN R) SUBCUT PRN ×3 (00:53→19:06)
[2023-09-02] MEDS: LevALBUTEROL HCL 1.25 MG/0.5 ML *CONC.* VIAL.NEB (XOPENEX CONC.) INH SCH ×4 (01:22→19:55)
[2023-09-02] MEDS ORDERED: *PPN PER PHARMACY XX PRN (06:30)
[2023-09-02] MEDS ORDERED: INSULIN REGULAR, HUMAN 100 UNITS/ML, 3 ML VIAL (humuLIN R) SUBCUT PRN (06:30)
[2023-09-02] MEDS ORDERED: DEXTROSE 50% JECT 50 ML DISP.SYRIN IVP PRN (06:30)
[2023-09-02 07:37] LABS: BASOPHILS # (AUTO) 0.1 K/uL (0.0-0.2); BASOPHILS % (AUTO) 0.4 % (0.0-2.0); EOSINOPHILS # (AUTO) 0.5 K/uL (0.0-0.4); EOSINOPHILS % (AUTO) 3.2 % (0.0-4.0); HEMATOCRIT 25.1 % (36-48); HEMOGLOBIN 7.9 g/dL (12.0-16.0); LYMPHOCYTES # (AUTO) 2.6 K/uL (1.0-5.5); LYMPHOCYTES % (AUTO) 18.9 % (20.5-51.5); MEAN CORPUSCULAR HEMOGLOBIN 29 pg (27-31); MEAN CORPUSCULAR HGB CONC 32 % (32-36); MEAN CORPUSCULAR VOLUME 90 fL (79.0-98.0); MONOCYTES # (AUTO) 0.9 K/uL (0.0-1.0); MONOCYTES % (AUTO) 6.4 % (1.7-9.3); NEUTROPHILS # (AUTO) 9.9 K/uL (1.8-7.7); NEUTROPHILS % (AUTO) 71.1 % (40.0-70.0); PLATELET COUNT (AUTO) 221 K/uL (130-430); RED BLOOD CELL COUNT(AUTO) 2.77 MIL/uL (4.2-6.2); WHITE BLOOD COUNT (AUTO) 13.9 K/uL (4.8-10.8)
[2023-09-02 07:42] LABS: ALANINE AMINOTRANSFERASE 17 U/L (12-78); ALBUMIN 1.5 g/dL (3.4-4.8); ANION GAP 8 (5-15); ASPARTATE AMINOTRANSFERASE 24 U/L (10-37); CARBON DIOXIDE 27 mmol/L (23-29); CHLORIDE 105 mmol/L (98-107); CREATININE 2.84 mg/dL (0.55-1.30); GLUCOSE 176 mg/dL (74-106); POTASSIUM 4.1 mmol/L (3.5-5.1); SODIUM SERUM 140 mmol/L (136-145); TOTAL BILIRUBIN 0.3 mg/dL (0.0-1.0); UREA NITROGEN, BLOOD 30 mg/dL (8-21)
[2023-09-02] MEDS: PANTOPRAZOLE SODIUM 40 MG/VIAL (PROTONIX) IVP SCH ×2 (10:00→21:18)
[2023-09-02] MEDS: D5NS 1,000 ML IV SCH (10:10)
[2023-09-02] MEDS: traMADol HCL HCL 50 MG TABLET (ULTRAM) PO PRN (13:36)
[2023-09-02] MEDS: FLUCONAZOLE 100 mg/ NS 50 ML IV SCH (13:40)
[2023-09-02] MEDS: KETOROLAC TROMETHAMINE 30 MG VIAL IVP PRN (16:05)
[2023-09-02] MEDS: EPOETIN ALFA-EPBX 4,000 UNITS/ML VIAL SUBCUT SCH (17:35)
[2023-09-02] MEDS: TPN PERIPHERAL IV SCH ×6 (21:17)
[2023-09-02] MEDS: TRACE ELEMENTS IV SCH ×6 (21:17)
[2023-09-02] MEDS: MVI IV SCH ×6 (21:17)
[2023-09-02] MEDS: MAGNESIUM SULFATE IV SCH ×6 (21:17)
[2023-09-02] MEDS: [UNRECOGNIZED DRUG - OTHER] IV SCH ×6 (21:17)
[2023-09-03] VITALS (7 sets, daily range): BP systolic 151–163; PULSE 75–96; RESP 16–19; TEMP 97.3–98.6; O2SAT 94–99
[2023-09-03] MEDS: INSULIN REGULAR, HUMAN 100 UNITS/ML, 3 ML VIAL (humuLIN R) SUBCUT PRN ×3 (00:53→18:02)
[2023-09-03] MEDS: LevALBUTEROL HCL 1.25 MG/0.5 ML *CONC.* VIAL.NEB (XOPENEX CONC.) INH SCH ×4 (01:41→20:05)
[2023-09-03] MEDS: D5NS 1,000 ML IV SCH (06:41)
[2023-09-03 07:21] LABS: BASOPHILS # (AUTO) 0.1 K/uL (0.0-0.2); BASOPHILS % (AUTO) 0.6 % (0.0-2.0); EOSINOPHILS # (AUTO) 0.4 K/uL (0.0-0.4); HEMATOCRIT 23.9 % (36-48); HEMOGLOBIN 7.5 g/dL (12.0-16.0); LYMPHOCYTES # (AUTO) 2.6 K/uL (1.0-5.5); LYMPHOCYTES % (AUTO) 19.1 % (20.5-51.5); MEAN CORPUSCULAR HEMOGLOBIN 29 pg (27-31); MEAN CORPUSCULAR HGB CONC 31 % (32-36); MEAN CORPUSCULAR VOLUME 91 fL (79.0-98.0); MONOCYTES % (AUTO) 7.2 % (1.7-9.3); NEUTROPHILS # (AUTO) 9.6 K/uL (1.8-7.7); NEUTROPHILS % (AUTO) 70.1 % (40.0-70.0); PLATELET COUNT (AUTO) 250 K/uL (130-430); RED BLOOD CELL COUNT(AUTO) 2.62 MIL/uL (4.2-6.2); RED CELL DISTRIBUTION WIDTH 15.7 % (9.0-15.0); WHITE BLOOD COUNT (AUTO) 13.8 K/uL (4.8-10.8)
[2023-09-03 07:34] LABS: ALANINE AMINOTRANSFERASE 15 U/L (12-78); ALBUMIN 1.5 g/dL (3.4-4.8); ANION GAP 8 (5-15); ASPARTATE AMINOTRANSFERASE 24 U/L (10-37); CALCIUM 7.1 mg/dL (8.4-11.0); CARBON DIOXIDE 27 mmol/L (23-29); CHLORIDE 104 mmol/L (98-107); CREATININE 3.38 mg/dL (0.55-1.30); GLUCOSE 174 mg/dL (74-106); PHOSPHORUS 3.9 mg/dL (2.7-4.5); POTASSIUM 3.9 mmol/L (3.5-5.1); SODIUM SERUM 139 mmol/L (136-145); TOTAL BILIRUBIN 0.3 mg/dL (0.0-1.0); UREA NITROGEN, BLOOD 38 mg/dL (8-21)
[2023-09-03] MEDS: PANTOPRAZOLE SODIUM 40 MG/VIAL (PROTONIX) IVP SCH ×2 (09:50→21:30)
[2023-09-03] MEDS: FLUCONAZOLE 100 mg/ NS 50 ML IV SCH (14:45)
[2023-09-03] MEDS: MVI IV SCH ×6 (21:33)
[2023-09-03] MEDS: TRACE ELEMENTS IV SCH ×6 (21:33)
[2023-09-03] MEDS: TPN PERIPHERAL IV SCH ×6 (21:33)
[2023-09-03] MEDS: [UNRECOGNIZED DRUG - OTHER] IV SCH ×6 (21:33)
[2023-09-03] MEDS: MAGNESIUM SULFATE IV SCH ×6 (21:33)
[2023-09-04] VITALS (9 sets, daily range): BP systolic 125–170; PULSE 89–92; RESP 18–20; TEMP 97–98.1; O2SAT 94–99
[2023-09-04] MEDS: LevALBUTEROL HCL 1.25 MG/0.5 ML *CONC.* VIAL.NEB (XOPENEX CONC.) INH SCH ×4 (01:30→19:42)
[2023-09-04] MEDS: D5NS 1,000 ML IV SCH ×2 (02:17→21:48)
[2023-09-04 06:41] LABS: BASOPHILS # (AUTO) 0.1 K/uL (0.0-0.2); BASOPHILS % (AUTO) 1.1 % (0.0-2.0); EOSINOPHILS # (AUTO) 0.5 K/uL (0.0-0.4); EOSINOPHILS % (AUTO) 5.2 % (0.0-4.0); HEMATOCRIT 22.5 % (36-48); HEMOGLOBIN 7.2 g/dL (12.0-16.0); LYMPHOCYTES # (AUTO) 2.7 K/uL (1.0-5.5); LYMPHOCYTES % (AUTO) 28.1 % (20.5-51.5); MEAN CORPUSCULAR HEMOGLOBIN 29 pg (27-31); MEAN CORPUSCULAR HGB CONC 32 % (32-36); MEAN CORPUSCULAR VOLUME 92 fL (79.0-98.0); MONOCYTES # (AUTO) 0.7 K/uL (0.0-1.0); MONOCYTES % (AUTO) 7.1 % (1.7-9.3); NEUTROPHILS # (AUTO) 5.6 K/uL (1.8-7.7); NEUTROPHILS % (AUTO) 58.5 % (40.0-70.0); PLATELET COUNT (AUTO) 264 K/uL (130-430); RED BLOOD CELL COUNT(AUTO) 2.45 MIL/uL (4.2-6.2); RED CELL DISTRIBUTION WIDTH 15.6 % (9.0-15.0); WHITE BLOOD COUNT (AUTO) 9.5 K/uL (4.8-10.8)
[2023-09-04 07:07] LABS: ALANINE AMINOTRANSFERASE 15 U/L (12-78); ALBUMIN 1.5 g/dL (3.4-4.8); ANION GAP 6 (5-15); ASPARTATE AMINOTRANSFERASE 25 U/L (10-37); CALCIUM 7.1 mg/dL (8.4-11.0); CARBON DIOXIDE 29 mmol/L (23-29); CHLORIDE 102 mmol/L (98-107); CREATININE 2.58 mg/dL (0.55-1.30); GLUCOSE 153 mg/dL (74-106); PHOSPHORUS 3.1 mg/dL (2.7-4.5); POTASSIUM 3.8 mmol/L (3.5-5.1); SODIUM SERUM 137 mmol/L (136-145); TOTAL BILIRUBIN 0.3 mg/dL (0.0-1.0); TOTAL PROTEIN, SERUM 5.1 g/dL (6.4-8.3); UREA NITROGEN, BLOOD 27 mg/dL (8-21)
[2023-09-04] MEDS: PANTOPRAZOLE SODIUM 40 MG/VIAL (PROTONIX) IVP SCH ×2 (09:46→21:26)
[2023-09-04] MEDS: INSULIN REGULAR, HUMAN 100 UNITS/ML, 3 ML VIAL (humuLIN R) SUBCUT PRN ×2 (11:46→18:15)
[2023-09-04] MEDS: FLUCONAZOLE 100 mg/ NS 50 ML IV SCH (12:21)
[2023-09-04] MEDS: KETOROLAC TROMETHAMINE 30 MG VIAL IVP PRN (15:18)
[2023-09-04] MEDS ORDERED: MAGNESIUM SULFATE IV SCH ×7 (21:00)
[2023-09-04] MEDS ORDERED: MVI IV SCH ×7 (21:00)
[2023-09-04] MEDS ORDERED: TRACE ELEMENTS IV SCH ×7 (21:00)
[2023-09-04] MEDS ORDERED: [UNRECOGNIZED DRUG - OTHER] IV SCH ×7 (21:00)
[2023-09-04] MEDS ORDERED: TPN PERIPHERAL IV SCH ×7 (21:00)
[2023-09-05] VITALS (7 sets, daily range): BP systolic 123–154; PULSE 88–94; RESP 19–24; TEMP 97.5–98.6; O2SAT 95–97
[2023-09-05] MEDS: LevALBUTEROL HCL 1.25 MG/0.5 ML *CONC.* VIAL.NEB (XOPENEX CONC.) INH SCH ×4 (01:44→19:58)
[2023-09-05 05:48] LABS: BASOPHILS # (AUTO) 0.1 K/uL (0.0-0.2); EOSINOPHILS # (AUTO) 0.4 K/uL (0.0-0.4); EOSINOPHILS % (AUTO) 4.6 % (0.0-4.0); LYMPHOCYTES # (AUTO) 2.5 K/uL (1.0-5.5); MEAN CORPUSCULAR HEMOGLOBIN 30 pg (27-31); MEAN CORPUSCULAR HGB CONC 33 % (32-36); MEAN CORPUSCULAR VOLUME 91 fL (79.0-98.0); MONOCYTES # (AUTO) 0.7 K/uL (0.0-1.0); MONOCYTES % (AUTO) 8.4 % (1.7-9.3); NEUTROPHILS # (AUTO) 4.9 K/uL (1.8-7.7); PLATELET COUNT (AUTO) 312 K/uL (130-430); RED BLOOD CELL COUNT(AUTO) 2.28 MIL/uL (4.2-6.2); RED CELL DISTRIBUTION WIDTH 16.1 % (9.0-15.0); WHITE BLOOD COUNT (AUTO) 8.7 K/uL (4.8-10.8)
[2023-09-05 06:09] LABS: HEMATOCRIT 20.7 % (36-48); HEMOGLOBIN 6.8 g/dL (12.0-16.0)
[2023-09-05 06:17] LABS: ALANINE AMINOTRANSFERASE 14 U/L (12-78); ALBUMIN 1.6 g/dL (3.4-4.8); ANION GAP 11 (5-15); ASPARTATE AMINOTRANSFERASE 26 U/L (10-37); CARBON DIOXIDE 26 mmol/L (23-29); CHLORIDE 98 mmol/L (98-107); CREATININE 3.09 mg/dL (0.55-1.30); GLUCOSE 132 mg/dL (74-106); POTASSIUM 3.5 mmol/L (3.5-5.1); SODIUM SERUM 135 mmol/L (136-145); TOTAL BILIRUBIN 0.3 mg/dL (0.0-1.0); TOTAL PROTEIN, SERUM 4.9 g/dL (6.4-8.3); UREA NITROGEN, BLOOD 37 mg/dL (8-21)
[2023-09-05] MEDS: PANTOPRAZOLE SODIUM 40 MG/VIAL (PROTONIX) IVP SCH (08:41)
[2023-09-05] MEDS: INSULIN REGULAR, HUMAN 100 UNITS/ML, 3 ML VIAL (humuLIN R) SUBCUT PRN (12:13)
[2023-09-05] MEDS: FLUCONAZOLE 100 mg/ NS 50 ML IV SCH (12:38)
[2023-09-05 13:26] LABS: ABG O2 SAT% ESTIMATE 96.6 % (94.0-100.0); BLOOD GAS BASE EXCESS -0.1 mmol/L (-3.0-3.0); BLOOD GAS HCO3 25.4 mmol/L (21.0-27.0); BLOOD GAS PCO2 44.8 mmHg (35.0-45.0); BLOOD GAS PH 7.372 (7.350-7.450); BLOOD GAS PO2 89.8 mmHg (75.0-100.0)
[2023-09-05 13:48] LABS: ALLEN'S TEST POSITIVE (P)
[2023-09-05] MEDS: EPOETIN ALFA-EPBX 4,000 UNITS/ML VIAL SUBCUT SCH (17:22)
[2023-09-05] MEDS: D5NS 1,000 ML IV SCH (17:23)
[2023-09-05] MEDS ORDERED: [UNRECOGNIZED DRUG - OTHER] IV SCH ×8 (21:00)
[2023-09-05] MEDS ORDERED: TPN PERIPHERAL IV SCH ×8 (21:00)
[2023-09-05] MEDS ORDERED: POTASSIUM CHLORIDE IV SCH ×8 (21:00)
[2023-09-05] MEDS ORDERED: SODIUM CHLORIDE IV SCH ×8 (21:00)
[2023-09-06] VITALS (8 sets, daily range): BP systolic 115–141; PULSE 84–89; RESP 18–22; TEMP 97.9–98.9; O2SAT 97–99
[2023-09-06] MEDS: LevALBUTEROL HCL 1.25 MG/0.5 ML *CONC.* VIAL.NEB (XOPENEX CONC.) INH SCH ×3 (01:13→19:00)
[2023-09-06] MEDS: PANTOPRAZOLE SODIUM 40 MG/VIAL (PROTONIX) IVP SCH ×3 (01:29→20:56)
[2023-09-06] MEDS: D5NS 1,000 ML IV SCH (01:42)
[2023-09-06 06:06] LABS: BASOPHILS # (AUTO) 0.1 K/uL (0.0-0.2); EOSINOPHILS # (AUTO) 0.4 K/uL (0.0-0.4); EOSINOPHILS % (AUTO) 5.8 % (0.0-4.0); HEMATOCRIT 30.8 % (36-48); HEMOGLOBIN 9.9 g/dL (12.0-16.0); LYMPHOCYTES # (AUTO) 1.8 K/uL (1.0-5.5); LYMPHOCYTES % (AUTO) 23.7 % (20.5-51.5); MEAN CORPUSCULAR HEMOGLOBIN 29 pg (27-31); MEAN CORPUSCULAR HGB CONC 32 % (32-36); MEAN CORPUSCULAR VOLUME 91 fL (79.0-98.0); MONOCYTES # (AUTO) 0.6 K/uL (0.0-1.0); MONOCYTES % (AUTO) 8.4 % (1.7-9.3); NEUTROPHILS # (AUTO) 4.5 K/uL (1.8-7.7); NEUTROPHILS % (AUTO) 61.1 % (40.0-70.0); PLATELET COUNT (AUTO) 323 K/uL (130-430); RED CELL DISTRIBUTION WIDTH 15.5 % (9.0-15.0); WHITE BLOOD COUNT (AUTO) 7.4 K/uL (4.8-10.8)
[2023-09-06 07:13] LABS: ALANINE AMINOTRANSFERASE 15 U/L (12-78); ALBUMIN 1.7 g/dL (3.4-4.8); ANION GAP 11 (5-15); ASPARTATE AMINOTRANSFERASE 28 U/L (10-37); CALCIUM 7.2 mg/dL (8.4-11.0); CARBON DIOXIDE 26 mmol/L (23-29); CHLORIDE 100 mmol/L (98-107); CREATININE 3.33 mg/dL (0.55-1.30); GLUCOSE 144 mg/dL (74-106); PHOSPHORUS 4.8 mg/dL (2.7-4.5); POTASSIUM 3.5 mmol/L (3.5-5.1); SODIUM SERUM 137 mmol/L (136-145); TOTAL BILIRUBIN 0.3 mg/dL (0.0-1.0); TOTAL PROTEIN, SERUM 5.2 g/dL (6.4-8.3); UREA NITROGEN, BLOOD 49 mg/dL (8-21)
[2023-09-06] MEDS: KETOROLAC TROMETHAMINE 30 MG VIAL IVP PRN ×3 (12:25→18:32)
[2023-09-06] MEDS: HEPARIN SODIUM,PORCINE 5,000 UNITS/ML VIAL MC PRN (12:28)
[2023-09-06] MEDS: FLUCONAZOLE 100 mg/ NS 50 ML IV SCH (12:35)
[2023-09-06] MEDS ORDERED: HEPARIN SODIUM,PORCINE 5,000 UNITS/ML VIAL IVP ONE (13:00)
[2023-09-06] MEDS: INSULIN REGULAR, HUMAN 100 UNITS/ML, 3 ML VIAL (humuLIN R) SUBCUT PRN (17:44)
[2023-09-06] MEDS ORDERED: POTASSIUM CHLORIDE IV SCH ×8 (21:00)
[2023-09-06] MEDS ORDERED: SODIUM CHLORIDE IV SCH ×8 (21:00)
[2023-09-06] MEDS ORDERED: [UNRECOGNIZED DRUG - OTHER] IV SCH ×8 (21:00)
[2023-09-06] MEDS ORDERED: TPN PERIPHERAL IV SCH ×8 (21:00)
[2023-09-07] VITALS (8 sets, daily range): BP systolic 148–160; PULSE 77–94; RESP 16–18; TEMP 97.4–98.4; O2SAT 91–98
[2023-09-07] MEDS: LevALBUTEROL HCL 1.25 MG/0.5 ML *CONC.* VIAL.NEB (XOPENEX CONC.) INH SCH ×4 (01:00→19:00)
[2023-09-07 06:40] LABS: ALANINE AMINOTRANSFERASE 16 U/L (12-78); ALBUMIN 1.8 g/dL (3.4-4.8); ANION GAP 9 (5-15); ASPARTATE AMINOTRANSFERASE 29 U/L (10-37); CALCIUM 8.5 mg/dL (8.4-11.0); CARBON DIOXIDE 27 mmol/L (23-29); CHLORIDE 102 mmol/L (98-107); GLUCOSE 144 mg/dL (74-106); PHOSPHORUS 3.8 mg/dL (2.7-4.5); POTASSIUM 3.9 mmol/L (3.5-5.1); SODIUM SERUM 138 mmol/L (136-145); TOTAL BILIRUBIN 0.3 mg/dL (0.0-1.0); TOTAL PROTEIN, SERUM 5.3 g/dL (6.4-8.3); UREA NITROGEN, BLOOD 40 mg/dL (8-21)
[2023-09-07] MEDS: D5NS 1,000 ML IV SCH ×2 (09:01→20:20)
[2023-09-07] MEDS: PANTOPRAZOLE SODIUM 40 MG/VIAL (PROTONIX) IVP SCH ×2 (09:01→20:14)
[2023-09-07] MEDS: INSULIN REGULAR, HUMAN 100 UNITS/ML, 3 ML VIAL (humuLIN R) SUBCUT PRN ×2 (12:42→18:49)
[2023-09-07] MEDS: EPOETIN ALFA-EPBX 4,000 UNITS/ML VIAL SUBCUT SCH (18:47)
[2023-09-07] MEDS: traMADol HCL HCL 50 MG TABLET (ULTRAM) PO PRN (20:15)
[2023-09-07] MEDS ORDERED: POTASSIUM CHLORIDE IV SCH ×8 (21:00)
[2023-09-07] MEDS ORDERED: SODIUM CHLORIDE IV SCH ×8 (21:00)
[2023-09-07] MEDS ORDERED: TPN PERIPHERAL IV SCH ×8 (21:00)
[2023-09-07] MEDS ORDERED: [UNRECOGNIZED DRUG - OTHER] IV SCH ×8 (21:00)
[2023-09-08] VITALS (20 sets, daily range): BP systolic 111–184; PULSE 61–105; RESP 16–19; TEMP 96.5–98.2; O2SAT 91–98
[2023-09-08] MEDS: LevALBUTEROL HCL 1.25 MG/0.5 ML *CONC.* VIAL.NEB (XOPENEX CONC.) INH SCH ×4 (01:00→19:45)
[2023-09-08 01:32] LABS: BILIRUBIN,URINE 1+ (NEGATIVE); BLOOD, URINE 3+ (NEGATIVE); CLARITY/URINE SL CLOUDY (CLEAR); COLOR,URINE RED (YELLOW); GLUCOSE,URINE NEGATIVE (NEGATIVE); KETONES,URINE NEGATIVE (NEGATIVE); LEUKOCYTE ESTERASE ,URINE 2+ (NEGATIVE); NITRITE, URINE POSITIVE (NEGATIVE); PROTEIN URINE 2+ (NEGATIVE); UROBILINOGEN,URINE 0.2 (0.2-1.0)
[2023-09-08 01:47] LABS: BACTERIA,URINE MODERATE /HPF (None Seen); RBC,URINE >100 /HPF (0-3)
[2023-09-08] MEDS: INSULIN REGULAR, HUMAN 100 UNITS/ML, 3 ML VIAL (humuLIN R) SUBCUT PRN (06:04)
[2023-09-08 06:56] LABS: INR 1.1 (0.8-1.2); PROTHROMBIN TIME 11.3 SECS (9.5-12.5)
[2023-09-08 07:53] LABS: ALANINE AMINOTRANSFERASE 18 U/L (12-78); ALBUMIN 1.9 g/dL (3.4-4.8); ANION GAP 10 (5-15); ASPARTATE AMINOTRANSFERASE 28 U/L (10-37); CALCIUM 8.9 mg/dL (8.4-11.0); CARBON DIOXIDE 26 mmol/L (23-29); CHLORIDE 105 mmol/L (98-107); CREATININE 2.83 mg/dL (0.55-1.30); GLUCOSE 164 mg/dL (74-106); PHOSPHORUS 3.5 mg/dL (2.7-4.5); POTASSIUM 4.1 mmol/L (3.5-5.1); SODIUM SERUM 141 mmol/L (136-145); TOTAL BILIRUBIN 0.2 mg/dL (0.0-1.0); TOTAL PROTEIN, SERUM 5.7 g/dL (6.4-8.3); UREA NITROGEN, BLOOD 49 mg/dL (8-21)
[2023-09-08] MEDS: PANTOPRAZOLE SODIUM 40 MG/VIAL (PROTONIX) IVP SCH ×2 (09:00→22:31)
[2023-09-08] MEDS ORDERED: ETOMIDATE 20 MG/ 10 ML VIAL (AMIDATE) IVP ONE (12:38)
[2023-09-08] MEDS ORDERED: VECURONIUM BROMIDE 10 MG/VIAL (NORCURON) IVP ONE (12:38)
[2023-09-08] MEDS ORDERED: PROPOFOL DRIP 100 ML IV ONE (13:44)
[2023-09-08] MEDS ORDERED: LORazepam 2 MG/ML VIAL IVP PRN (15:00)
[2023-09-08 15:01] LABS: ALLEN'S TEST POSITIVE (P); BLOOD GAS BASE EXCESS -2.2 mmol/L (-3.0-3.0); BLOOD GAS HCO3 19.8 mmol/L (21.0-27.0); BLOOD GAS PCO2 27.5 mmHg (35.0-45.0); BLOOD GAS PH 7.476 (7.350-7.450); BLOOD GAS PO2 82.8 mmHg (75.0-100.0)
[2023-09-08] MEDS ORDERED: levETIRAcetam 1,000 MG in NS 100 ML IV ONE (16:00)
[2023-09-08] MEDS: PROPOFOL DRIP 100 ML IV PRN ×2 (16:06→22:50)
[2023-09-08] MEDS ORDERED: ALBUMIN HUMAN 25% 50 ML IV ONE (16:15)
[2023-09-08] MEDS ORDERED: TPN PERIPHERAL IV SCH ×8 (21:00)
[2023-09-08] MEDS ORDERED: SODIUM CHLORIDE IV SCH ×8 (21:00)
[2023-09-08] MEDS ORDERED: [UNRECOGNIZED DRUG - OTHER] IV SCH ×8 (21:00)
[2023-09-08] MEDS ORDERED: POTASSIUM CHLORIDE IV SCH ×8 (21:00)
[2023-09-08] MEDS: levETIRAcetam 1,000 MG in NS 100 ML IV SCH (22:28)
[2023-09-09] VITALS (36 sets, daily range): BP systolic 92–160; PULSE 59–89; RESP 18–22; TEMP 96.1–96.8; O2SAT 92–100
[2023-09-09] MEDS: LevALBUTEROL HCL 1.25 MG/0.5 ML *CONC.* VIAL.NEB (XOPENEX CONC.) INH SCH ×4 (00:48→19:53)
[2023-09-09] MEDS: D5NS 1,000 ML IV SCH ×2 (01:48→10:03)
[2023-09-09] MEDS: PROPOFOL DRIP 100 ML IV PRN ×3 (05:27→16:20)
[2023-09-09 05:43] LABS: ALANINE AMINOTRANSFERASE 16 U/L (12-78); ALBUMIN 2.1 g/dL (3.4-4.8); ANION GAP 13 (5-15); ASPARTATE AMINOTRANSFERASE 25 U/L (10-37); CALCIUM 8.6 mg/dL (8.4-11.0); CARBON DIOXIDE 25 mmol/L (23-29); CHLORIDE 105 mmol/L (98-107); CREATININE 3.24 mg/dL (0.55-1.30); GLUCOSE 126 mg/dL (74-106); PHOSPHORUS 3.6 mg/dL (2.7-4.5); POTASSIUM 4.5 mmol/L (3.5-5.1); SODIUM SERUM 143 mmol/L (136-145); TOTAL BILIRUBIN 0.3 mg/dL (0.0-1.0); UREA NITROGEN, BLOOD 53 mg/dL (8-21)
[2023-09-09] MEDS: PANTOPRAZOLE SODIUM 40 MG/VIAL (PROTONIX) IVP SCH ×2 (08:51→20:30)
[2023-09-09] MEDS: levETIRAcetam 1,000 MG in NS 100 ML IV SCH (08:52)
[2023-09-09 09:53] LABS: BLOOD GAS PCO2 32.2 mmHg (35.0-45.0); BLOOD GAS PH 7.423 (7.350-7.450)
[2023-09-09 09:54] LABS: ALLEN'S TEST POSITIVE (P); BLOOD GAS BASE EXCESS -2.8 mmol/L (-3.0-3.0); BLOOD GAS HCO3 20.6 mmol/L (21.0-27.0)
[2023-09-09] MEDS ORDERED: HEPARIN SODIUM,PORCINE 5,000 UNITS/ML VIAL ONE (14:30)
[2023-09-09] MEDS ORDERED: ALTEPLASE 2 MG VIAL MC ONE (15:30)
[2023-09-09] MEDS: CEFEPIME 2 GM in D5W 100 ML IV SCH (16:49)
[2023-09-09] MEDS: EPOETIN ALFA-EPBX 4,000 UNITS/ML VIAL SUBCUT SCH (16:58)
[2023-09-09 17:07] LABS: BASOPHILS # (AUTO) 0.4 K/uL (0.0-0.2); BASOPHILS % (AUTO) 4.1 % (0.0-2.0); EOSINOPHILS # (AUTO) 0.4 K/uL (0.0-0.4); EOSINOPHILS % (AUTO) 3.7 % (0.0-4.0); HEMATOCRIT 29.3 % (36-48); HEMOGLOBIN 9.4 g/dL (12.0-16.0); LYMPHOCYTES # (AUTO) 2.2 K/uL (1.0-5.5); LYMPHOCYTES % (AUTO) 22.1 % (20.5-51.5); MEAN CORPUSCULAR HEMOGLOBIN 30 pg (27-31); MEAN CORPUSCULAR HGB CONC 32 % (32-36); MEAN CORPUSCULAR VOLUME 92 fL (79.0-98.0); MONOCYTES # (AUTO) 1.1 K/uL (0.0-1.0); MONOCYTES % (AUTO) 10.6 % (1.7-9.3); NEUTROPHILS % (AUTO) 59.5 % (40.0-70.0); PLATELET COUNT (AUTO) 279 K/uL (130-430); RED BLOOD CELL COUNT(AUTO) 3.19 MIL/uL (4.2-6.2); RED CELL DISTRIBUTION WIDTH 17.1 % (9.0-15.0)
[2023-09-09] MEDS: metroNIDAZOLE 250 mg/NS 50 ML IV SCH (20:29)
[2023-09-09] MEDS: levETIRAcetam 1,000 MG IV BAG 100 ML IV SCH (20:29)
[2023-09-09] MEDS ORDERED: ATORVASTATIN 10 MG TABLET PO ONE (21:00)
[2023-09-09] MEDS ORDERED: SODIUM CHLORIDE IV SCH ×8 (21:00)
[2023-09-09] MEDS ORDERED: TPN PERIPHERAL IV SCH ×8 (21:00)
[2023-09-09] MEDS ORDERED: POTASSIUM CHLORIDE IV SCH ×8 (21:00)
[2023-09-09] MEDS ORDERED: ASPIRIN 81 MG TAB.CHEW NG ONE (21:00)
[2023-09-09] MEDS ORDERED: [UNRECOGNIZED DRUG - OTHER] IV SCH ×8 (21:00)
[2023-09-10] VITALS (37 sets, daily range): BP systolic 90–155; PULSE 65–128; RESP 18–24; TEMP 96.7–97.7; O2SAT 96–100
[2023-09-10] MEDS: LevALBUTEROL HCL 1.25 MG/0.5 ML *CONC.* VIAL.NEB (XOPENEX CONC.) INH SCH ×4 (00:46→20:04)
[2023-09-10] MEDS: PROPOFOL DRIP 100 ML IV PRN ×3 (04:38→19:55)
[2023-09-10 05:54] LABS: ALANINE AMINOTRANSFERASE 13 U/L (12-78); ALBUMIN 1.9 g/dL (3.4-4.8); ANION GAP 15 (5-15); ASPARTATE AMINOTRANSFERASE 21 U/L (10-37); CALCIUM 8.5 mg/dL (8.4-11.0); CARBON DIOXIDE 21 mmol/L (23-29); CHLORIDE 104 mmol/L (98-107); CREATININE 3.03 mg/dL (0.55-1.30); GLUCOSE 117 mg/dL (74-106); PHOSPHORUS 3.4 mg/dL (2.7-4.5); POTASSIUM 4.3 mmol/L (3.5-5.1); SODIUM SERUM 140 mmol/L (136-145); TOTAL BILIRUBIN 0.4 mg/dL (0.0-1.0); TOTAL PROTEIN, SERUM 5.4 g/dL (6.4-8.3); UREA NITROGEN, BLOOD 54 mg/dL (8-21)
[2023-09-10] MEDS: metroNIDAZOLE 250 mg/NS 50 ML IV SCH ×3 (06:06→21:27)
[2023-09-10] MEDS: PANTOPRAZOLE SODIUM 40 MG/VIAL (PROTONIX) IVP SCH ×2 (08:02→20:45)
[2023-09-10] MEDS: ATORVASTATIN 10 MG TABLET PO SCH (08:02)
[2023-09-10] MEDS: levETIRAcetam 1,000 MG IV BAG 100 ML IV SCH ×2 (08:02→20:45)
[2023-09-10] MEDS: ASPIRIN 81 MG TAB.CHEW NG SCH (08:02)
[2023-09-10] MEDS ORDERED: HEPARIN SODIUM,PORCINE 5,000 UNITS/ML VIAL MC ONE (10:30)
[2023-09-10] MEDS: CEFEPIME 2 GM in D5W 100 ML IV SCH (16:24)
[2023-09-10] MEDS: D5NS 1,000 ML IV SCH ×4 (17:48→21:48)
[2023-09-10] MEDS ORDERED: TPN PERIPHERAL IV SCH ×9 (21:00)
[2023-09-10] MEDS ORDERED: [UNRECOGNIZED DRUG - OTHER] IV SCH ×9 (21:00)
[2023-09-10] MEDS ORDERED: POTASSIUM CHLORIDE IV SCH ×9 (21:00)
[2023-09-10] MEDS ORDERED: SODIUM CHLORIDE IV SCH ×9 (21:00)
[2023-09-11] VITALS (36 sets, daily range): BP systolic 94–151; PULSE 66–113; RESP 18–23; TEMP 97–98.8; O2SAT 94–100
[2023-09-11] MEDS: LevALBUTEROL HCL 1.25 MG/0.5 ML *CONC.* VIAL.NEB (XOPENEX CONC.) INH SCH ×3 (01:33→14:28)
[2023-09-11] MEDS: PROPOFOL DRIP 100 ML IV PRN ×2 (02:54→11:13)
[2023-09-11 05:47] LABS: BASOPHILS # (AUTO) 0.1 K/uL (0.0-0.2); BASOPHILS % (AUTO) 1.5 % (0.0-2.0); EOSINOPHILS # (AUTO) 0.4 K/uL (0.0-0.4); EOSINOPHILS % (AUTO) 5.1 % (0.0-4.0); HEMATOCRIT 25.7 % (36-48); HEMOGLOBIN 8.2 g/dL (12.0-16.0); LYMPHOCYTES # (AUTO) 1.5 K/uL (1.0-5.5); LYMPHOCYTES % (AUTO) 22.2 % (20.5-51.5); MEAN CORPUSCULAR HEMOGLOBIN 29 pg (27-31); MEAN CORPUSCULAR HGB CONC 32 % (32-36); MEAN CORPUSCULAR VOLUME 91 fL (79.0-98.0); MONOCYTES # (AUTO) 0.6 K/uL (0.0-1.0); MONOCYTES % (AUTO) 9.3 % (1.7-9.3); NEUTROPHILS # (AUTO) 4.3 K/uL (1.8-7.7); NEUTROPHILS % (AUTO) 61.9 % (40.0-70.0); PLATELET COUNT (AUTO) 225 K/uL (130-430); RED BLOOD CELL COUNT(AUTO) 2.81 MIL/uL (4.2-6.2); RED CELL DISTRIBUTION WIDTH 17.3 % (9.0-15.0); WHITE BLOOD COUNT (AUTO) 6.9 K/uL (4.8-10.8)
[2023-09-11] MEDS: metroNIDAZOLE 250 mg/NS 50 ML IV SCH ×3 (05:52→22:17)
[2023-09-11 06:31] LABS: BLOOD GAS PO2 67.4 mmHg (75.0-100.0)
[2023-09-11 06:46] LABS: ALANINE AMINOTRANSFERASE 13 U/L (12-78); ALBUMIN 1.6 g/dL (3.4-4.8); ANION GAP 11 (5-15); ASPARTATE AMINOTRANSFERASE 17 U/L (10-37); CALCIUM 8.2 mg/dL (8.4-11.0); CARBON DIOXIDE 23 mmol/L (23-29); CHLORIDE 102 mmol/L (98-107); CREATININE 2.47 mg/dL (0.55-1.30); GLUCOSE 132 mg/dL (74-106); POTASSIUM 3.7 mmol/L (3.5-5.1); SODIUM SERUM 136 mmol/L (136-145); TOTAL BILIRUBIN 0.4 mg/dL (0.0-1.0); UREA NITROGEN, BLOOD 41 mg/dL (8-21)
[2023-09-11 07:16] LABS: PHOSPHORUS 2.7 mg/dL (2.7-4.5)
[2023-09-11] MEDS: ASPIRIN 81 MG TAB.CHEW NG SCH (09:37)
[2023-09-11] MEDS: levETIRAcetam 1,000 MG IV BAG 100 ML IV SCH ×2 (09:37→21:25)
[2023-09-11] MEDS: PANTOPRAZOLE SODIUM 40 MG/VIAL (PROTONIX) IVP SCH ×2 (09:37→21:24)
[2023-09-11] MEDS: ATORVASTATIN 10 MG TABLET PO SCH (09:37)
[2023-09-11 13:53] LABS: ANION GAP 9 (5-15); CALCIUM 8.3 mg/dL (8.4-11.0); CARBON DIOXIDE 23 mmol/L (23-29); CHLORIDE 102 mmol/L (98-107); CREATININE 2.62 mg/dL (0.55-1.30); GLUCOSE 126 mg/dL (74-106); POTASSIUM 4.1 mmol/L (3.5-5.1); SODIUM SERUM 134 mmol/L (136-145); UREA NITROGEN, BLOOD 42 mg/dL (8-21)
[2023-09-11] MEDS: CEFEPIME 2 GM in D5W 100 ML IV SCH (16:15)
[2023-09-11] MEDS ORDERED: SODIUM CHLORIDE IV SCH ×10 (21:00)
[2023-09-11] MEDS ORDERED: [UNRECOGNIZED DRUG - OTHER] IV SCH ×10 (21:00)
[2023-09-11] MEDS ORDERED: TPN PERIPHERAL IV SCH ×10 (21:00)
[2023-09-11] MEDS ORDERED: POTASSIUM CHLORIDE IV SCH ×10 (21:00)
[2023-09-12] VITALS (34 sets, daily range): BP systolic 105–160; PULSE 72–102; RESP 15–26; TEMP 97.4–98.7; O2SAT 93–100
[2023-09-12] MEDS: PROPOFOL DRIP 100 ML IV PRN ×2 (00:41→09:42)
[2023-09-12] MEDS: LevALBUTEROL HCL 1.25 MG/0.5 ML *CONC.* VIAL.NEB (XOPENEX CONC.) INH SCH ×4 (01:20→19:36)
[2023-09-12 04:49] LABS: BASOPHILS # (AUTO) 0.1 K/uL (0.0-0.2); BASOPHILS % (AUTO) 1.6 % (0.0-2.0); EOSINOPHILS % (AUTO) 0.2 % (0.0-4.0); HEMOGLOBIN 8.5 g/dL (12.0-16.0); LYMPHOCYTES # (AUTO) 0.6 K/uL (1.0-5.5); LYMPHOCYTES % (AUTO) 15.9 % (20.5-51.5); MEAN CORPUSCULAR HEMOGLOBIN 30 pg (27-31); MEAN CORPUSCULAR HGB CONC 33 % (32-36); MEAN CORPUSCULAR VOLUME 92 fL (79.0-98.0); MONOCYTES # (AUTO) 0.2 K/uL (0.0-1.0); MONOCYTES % (AUTO) 5.6 % (1.7-9.3); NEUTROPHILS # (AUTO) 3.1 K/uL (1.8-7.7); NEUTROPHILS % (AUTO) 76.7 % (40.0-70.0); PLATELET COUNT (AUTO) 228 K/uL (130-430); RED BLOOD CELL COUNT(AUTO) 2.82 MIL/uL (4.2-6.2); RED CELL DISTRIBUTION WIDTH 17.6 % (9.0-15.0); WHITE BLOOD COUNT (AUTO) 4.1 K/uL (4.8-10.8)
[2023-09-12 05:04] LABS: ALANINE AMINOTRANSFERASE 14 U/L (12-78); ALBUMIN 1.6 g/dL (3.4-4.8); ANION GAP 16 (5-15); ASPARTATE AMINOTRANSFERASE 28 U/L (10-37); CALCIUM 8.1 mg/dL (8.4-11.0); CARBON DIOXIDE 19 mmol/L (23-29); CHLORIDE 102 mmol/L (98-107); CREATININE 3.03 mg/dL (0.55-1.30); GLUCOSE 162 mg/dL (74-106); PHOSPHORUS 2.3 mg/dL (2.7-4.5); POTASSIUM 4.3 mmol/L (3.5-5.1); SODIUM SERUM 137 mmol/L (136-145); TOTAL BILIRUBIN 0.4 mg/dL (0.0-1.0); TOTAL PROTEIN, SERUM 5.2 g/dL (6.4-8.3); UREA NITROGEN, BLOOD 48 mg/dL (8-21)
[2023-09-12] MEDS: metroNIDAZOLE 250 mg/NS 50 ML IV SCH ×3 (06:08→21:01)
[2023-09-12] MEDS: D5NS 1,000 ML IV SCH (09:26)
[2023-09-12] MEDS: ATORVASTATIN 10 MG TABLET PO SCH (09:26)
[2023-09-12] MEDS: PANTOPRAZOLE SODIUM 40 MG/VIAL (PROTONIX) IVP SCH ×2 (09:26→20:08)
[2023-09-12] MEDS: ASPIRIN 81 MG TAB.CHEW NG SCH (09:26)
[2023-09-12] MEDS: levETIRAcetam 1,000 MG IV BAG 100 ML IV SCH ×2 (09:26→20:08)
[2023-09-12] MEDS: CEFEPIME 2 GM in D5W 100 ML IV SCH (15:10)
[2023-09-12] MEDS: EPOETIN ALFA-EPBX 4,000 UNITS/ML VIAL SUBCUT SCH (17:43)
[2023-09-12] MEDS ORDERED: MIDAZOLAM HCL/PF 2 MG/2 ML SYRINGE ONE (19:05)
[2023-09-12] MEDS ORDERED: SEVOFLURANE 15 MIN GAS INH ONE (19:05)
[2023-09-12] MEDS ORDERED: WATER FOR IRRIGATION,STERILE 1,000 ML IRRIG.SOLN IR ONE (19:05)
[2023-09-12] MEDS ORDERED: BUPIVACAINE /PF 0.5% 30 ML VIAL ONE (19:05)
[2023-09-12] MEDS ORDERED: PROPOFOL 200MG/ 20ML VIAL (DIPRIVAN) IV ONE (19:05)
[2023-09-12] MEDS ORDERED: ePHEDrine sulfate 50 MG/ML VIAL ONE (19:05)
[2023-09-12] MEDS ORDERED: NS 100 ML BAG ONE (19:05)
[2023-09-12] MEDS ORDERED: LIDOCAINE/EPI 1% 1:100000 20 ML VIAL ONE (19:05)
[2023-09-12] MEDS ORDERED: HEPARIN SODIUM,PORCINE 10,000 UNIT/ML VIAL ONE (19:05)
[2023-09-12] MEDS ORDERED: TPN PERIPHERAL IV SCH ×10 (21:00)
[2023-09-12] MEDS ORDERED: SODIUM ACETATE IV SCH ×10 (21:00)
[2023-09-12] MEDS ORDERED: [UNRECOGNIZED DRUG - OTHER] IV SCH ×10 (21:00)
[2023-09-12] MEDS ORDERED: SODIUM CHLORIDE IV SCH ×10 (21:00)
[2023-09-13] VITALS (34 sets, daily range): BP systolic 87–192; PULSE 78–130; RESP 12–34; TEMP 97.1–98.3; O2SAT 93–100
[2023-09-13] MEDS: LevALBUTEROL HCL 1.25 MG/0.5 ML *CONC.* VIAL.NEB (XOPENEX CONC.) INH SCH ×4 (00:38→19:00)
[2023-09-13] MEDS: D5NS 1,000 ML IV SCH (03:13)
[2023-09-13] MEDS: metroNIDAZOLE 250 mg/NS 50 ML IV SCH ×3 (05:26→21:16)
[2023-09-13 06:20] LABS: ALANINE AMINOTRANSFERASE 46 U/L (12-78); ALBUMIN 1.4 g/dL (3.4-4.8); ANION GAP 13 (5-15); ASPARTATE AMINOTRANSFERASE 129 U/L (10-37); CARBON DIOXIDE 18 mmol/L (23-29); CHLORIDE 98 mmol/L (98-107); GLUCOSE 129 mg/dL (74-106); PHOSPHORUS 2.8 mg/dL (2.7-4.5); SODIUM SERUM 129 mmol/L (136-145); TOTAL BILIRUBIN 0.5 mg/dL (0.0-1.0); UREA NITROGEN, BLOOD 52 mg/dL (8-21)
[2023-09-13] MEDS: ASPIRIN 81 MG TAB.CHEW NG SCH (09:00)
[2023-09-13] MEDS: PANTOPRAZOLE SODIUM 40 MG/VIAL (PROTONIX) IVP SCH ×2 (09:32→20:38)
[2023-09-13] MEDS: ATORVASTATIN 10 MG TABLET PO SCH (09:32)
[2023-09-13] MEDS: levETIRAcetam 1,000 MG IV BAG 100 ML IV SCH ×2 (09:33→20:39)
[2023-09-13] MEDS: PROPOFOL DRIP 100 ML IV PRN ×2 (09:57→23:38)
[2023-09-13] MEDS: CEFEPIME 2 GM in D5W 100 ML IV SCH (17:22)
[2023-09-13] MEDS ORDERED: [UNRECOGNIZED DRUG - OTHER] IV SCH ×10 (21:00)
[2023-09-13] MEDS ORDERED: TPN PERIPHERAL IV SCH ×10 (21:00)
[2023-09-13] MEDS ORDERED: SODIUM ACETATE IV SCH ×10 (21:00)
[2023-09-13] MEDS ORDERED: SODIUM CHLORIDE IV SCH ×10 (21:00)
[2023-09-14] VITALS (34 sets, daily range): BP systolic 87–181; PULSE 81–117; RESP 18–28; TEMP 97.7–98.3; O2SAT 93–99
[2023-09-14] MEDS: LevALBUTEROL HCL 1.25 MG/0.5 ML *CONC.* VIAL.NEB (XOPENEX CONC.) INH SCH ×4 (01:22→19:35)
[2023-09-14] MEDS: D5NS 1,000 ML IV SCH ×2 (01:48→18:02)
[2023-09-14] MEDS: metroNIDAZOLE 250 mg/NS 50 ML IV SCH ×3 (05:40→20:53)
[2023-09-14 05:41] LABS: ALANINE AMINOTRANSFERASE 42 U/L (12-78); ALBUMIN 1.2 g/dL (3.4-4.8); ANION GAP 13 (5-15); ASPARTATE AMINOTRANSFERASE 96 U/L (10-37); CALCIUM 7.7 mg/dL (8.4-11.0); CARBON DIOXIDE 20 mmol/L (23-29); CHLORIDE 99 mmol/L (98-107); CREATININE 3.75 mg/dL (0.55-1.30); GLUCOSE 138 mg/dL (74-106); POTASSIUM 4.7 mmol/L (3.5-5.1); SODIUM SERUM 132 mmol/L (136-145); TOTAL BILIRUBIN 0.6 mg/dL (0.0-1.0); TOTAL PROTEIN, SERUM 4.8 g/dL (6.4-8.3); UREA NITROGEN, BLOOD 60 mg/dL (8-21)
[2023-09-14] MEDS: PANTOPRAZOLE SODIUM 40 MG/VIAL (PROTONIX) IVP SCH ×2 (08:33→20:11)
[2023-09-14] MEDS: levETIRAcetam 1,000 MG IV BAG 100 ML IV SCH ×2 (08:33→20:11)
[2023-09-14] MEDS: ATORVASTATIN 10 MG TABLET PO SCH (09:00)
[2023-09-14] MEDS: ASPIRIN 81 MG TAB.CHEW NG SCH (09:00)
[2023-09-14] MEDS: HEPARIN SODIUM,PORCINE 5,000 UNITS/ML VIAL MC PRN (10:37)
[2023-09-14] MEDS: PROPOFOL DRIP 100 ML IV PRN ×2 (11:17→20:55)
[2023-09-14] MEDS ORDERED: ALBUMIN HUMAN 25% 100 ML IV ONE ×2 (11:41→11:45)
[2023-09-14] MEDS: EPOETIN ALFA-EPBX 4,000 UNITS/ML VIAL SUBCUT SCH (16:33)
[2023-09-14] MEDS: CEFEPIME 2 GM in D5W 100 ML IV SCH (16:33)
[2023-09-14] MEDS: INSULIN REGULAR, HUMAN 100 UNITS/ML, 3 ML VIAL (humuLIN R) SUBCUT PRN (18:04)
[2023-09-14] MEDS ORDERED: [UNRECOGNIZED DRUG - OTHER] IV SCH ×10 (21:00)
[2023-09-14] MEDS ORDERED: TPN PERIPHERAL IV SCH ×10 (21:00)
[2023-09-14] MEDS ORDERED: SODIUM CHLORIDE IV SCH ×10 (21:00)
[2023-09-14] MEDS ORDERED: SODIUM ACETATE IV SCH ×10 (21:00)
[2023-09-15] VITALS (36 sets, daily range): BP systolic 94–148; PULSE 79–109; RESP 17–28; TEMP 97.4–98.3; O2SAT 93–98
[2023-09-15] MEDS: LevALBUTEROL HCL 1.25 MG/0.5 ML *CONC.* VIAL.NEB (XOPENEX CONC.) INH SCH ×4 (01:25→19:45)
[2023-09-15] MEDS: PROPOFOL DRIP 100 ML IV PRN ×3 (02:53→22:02)
[2023-09-15] MEDS: metroNIDAZOLE 250 mg/NS 50 ML IV SCH (05:03)
[2023-09-15 05:59] LABS: BASOPHILS % (AUTO) 0.6 % (0.0-2.0); EOSINOPHILS # (AUTO) 0.1 K/uL (0.0-0.4); EOSINOPHILS % (AUTO) 1.6 % (0.0-4.0); HEMOGLOBIN 8.2 g/dL (12.0-16.0); LYMPHOCYTES # (AUTO) 1.1 K/uL (1.0-5.5); LYMPHOCYTES % (AUTO) 17.9 % (20.5-51.5); MEAN CORPUSCULAR HEMOGLOBIN 31 pg (27-31); MEAN CORPUSCULAR HGB CONC 34 % (32-36); MEAN CORPUSCULAR VOLUME 90 fL (79.0-98.0); MONOCYTES # (AUTO) 0.4 K/uL (0.0-1.0); MONOCYTES % (AUTO) 6.8 % (1.7-9.3); NEUTROPHILS # (AUTO) 4.4 K/uL (1.8-7.7); NEUTROPHILS % (AUTO) 73.1 % (40.0-70.0); PLATELET COUNT (AUTO) 123 K/uL (130-430); RED BLOOD CELL COUNT(AUTO) 2.67 MIL/uL (4.2-6.2); RED CELL DISTRIBUTION WIDTH 16.9 % (9.0-15.0)
[2023-09-15 06:32] LABS: ALANINE AMINOTRANSFERASE 39 U/L (12-78); ALBUMIN 1.6 g/dL (3.4-4.8); ANION GAP 14 (5-15); ASPARTATE AMINOTRANSFERASE 91 U/L (10-37); CALCIUM 8.1 mg/dL (8.4-11.0); CARBON DIOXIDE 23 mmol/L (23-29); CHLORIDE 99 mmol/L (98-107); CREATININE 3.36 mg/dL (0.55-1.30); GLUCOSE 166 mg/dL (74-106); PHOSPHORUS 1.9 mg/dL (2.7-4.5); POTASSIUM 4.4 mmol/L (3.5-5.1); SODIUM SERUM 136 mmol/L (136-145); TOTAL BILIRUBIN 1.1 mg/dL (0.0-1.0); TOTAL PROTEIN, SERUM 5.1 g/dL (6.4-8.3); UREA NITROGEN, BLOOD 48 mg/dL (8-21)
[2023-09-15] MEDS: ATORVASTATIN 10 MG TABLET PO SCH (08:23)
[2023-09-15] MEDS: levETIRAcetam 1,000 MG IV BAG 100 ML IV SCH ×2 (08:23→20:20)
[2023-09-15] MEDS: ASPIRIN 81 MG TAB.CHEW NG SCH (08:24)
[2023-09-15] MEDS: PANTOPRAZOLE SODIUM 40 MG/VIAL (PROTONIX) IVP SCH ×2 (08:24→20:20)
[2023-09-15] MEDS: INSULIN REGULAR, HUMAN 100 UNITS/ML, 3 ML VIAL (humuLIN R) SUBCUT PRN ×2 (13:10→17:33)
[2023-09-15] MEDS: D5NS 1,000 ML IV SCH (17:48)
[2023-09-15] MEDS: TPN PERIPHERAL IV SCH ×10 (21:00)
[2023-09-15] MEDS: [UNRECOGNIZED DRUG - OTHER] IV SCH ×10 (21:00)
[2023-09-15] MEDS: SODIUM ACETATE IV SCH ×10 (21:00)
[2023-09-15] MEDS: SODIUM CHLORIDE IV SCH ×10 (21:00)
[2023-09-16] VITALS (36 sets, daily range): BP systolic 95–122; PULSE 88–106; RESP 16–26; TEMP 97–98.6; O2SAT 93–98
[2023-09-16] MEDS: TPN PERIPHERAL IV SCH ×10
[2023-09-16] MEDS: SODIUM ACETATE IV SCH ×10
[2023-09-16] MEDS: SODIUM CHLORIDE IV SCH ×10
[2023-09-16] MEDS: [UNRECOGNIZED DRUG - OTHER] IV SCH ×10
[2023-09-16] MEDS: LevALBUTEROL HCL 1.25 MG/0.5 ML *CONC.* VIAL.NEB (XOPENEX CONC.) INH SCH ×3 (01:10→19:39)
[2023-09-16] MEDS: PROPOFOL DRIP 100 ML IV PRN (05:10)
[2023-09-16 07:52] LABS: ALBUMIN 1.3 g/dL (3.4-4.8); ANION GAP 13 (5-15); CALCIUM 7.8 mg/dL (8.4-11.0); CARBON DIOXIDE 22 mmol/L (23-29); CHLORIDE 98 mmol/L (98-107); CREATININE 4.01 mg/dL (0.55-1.30); GLUCOSE 177 mg/dL (74-106); POTASSIUM 4.3 mmol/L (3.5-5.1); SODIUM SERUM 133 mmol/L (136-145); TOTAL BILIRUBIN 1.1 mg/dL (0.0-1.0); TOTAL PROTEIN, SERUM 4.5 g/dL (6.4-8.3); UREA NITROGEN, BLOOD 57 mg/dL (8-21)
[2023-09-16] MEDS: levETIRAcetam 1,000 MG IV BAG 100 ML IV SCH ×2 (08:38→20:26)
[2023-09-16] MEDS: PANTOPRAZOLE SODIUM 40 MG/VIAL (PROTONIX) IVP SCH ×2 (08:38→20:26)
[2023-09-16] MEDS: ATORVASTATIN 10 MG TABLET PO SCH (08:38)
[2023-09-16] MEDS: ASPIRIN 81 MG TAB.CHEW NG SCH (08:38)
[2023-09-16 08:50] LABS: ALANINE AMINOTRANSFERASE 34 U/L (12-78); ASPARTATE AMINOTRANSFERASE 84 U/L (10-37)
[2023-09-16 08:52] LABS: PHOSPHORUS 0.8 mg/dL (2.7-4.5)
[2023-09-16] MEDS: D5NS 1,000 ML IV SCH (09:37)
[2023-09-16] MEDS ORDERED: NA PHOS IV ONE (11:00)
[2023-09-16] MEDS ORDERED: NS IV ONE (11:00)
[2023-09-16] MEDS: HEPARIN SODIUM,PORCINE 5,000 UNITS/ML VIAL MC PRN (13:52)
[2023-09-16] MEDS: EPOETIN ALFA-EPBX 4,000 UNITS/ML VIAL SUBCUT SCH (17:50)
[2023-09-16] MEDS: INSULIN REGULAR, HUMAN 100 UNITS/ML, 3 ML VIAL (humuLIN R) SUBCUT PRN (17:55)
[2023-09-17] VITALS (37 sets, daily range): BP systolic 103–140; PULSE 55–106; RESP 18–27; TEMP 96.6–98.5; O2SAT 93–97
[2023-09-17] MEDS: LevALBUTEROL HCL 1.25 MG/0.5 ML *CONC.* VIAL.NEB (XOPENEX CONC.) INH SCH ×4 (00:16→19:40)
[2023-09-17] MEDS: INSULIN REGULAR, HUMAN 100 UNITS/ML, 3 ML VIAL (humuLIN R) SUBCUT PRN ×3 (00:25→18:33)
[2023-09-17 06:16] LABS: BASOPHILS # (AUTO) 0.1 K/uL (0.0-0.2); BASOPHILS % (AUTO) 0.8 % (0.0-2.0); EOSINOPHILS # (AUTO) 0.4 K/uL (0.0-0.4); EOSINOPHILS % (AUTO) 4.2 % (0.0-4.0); HEMATOCRIT 22.4 % (36-48); HEMOGLOBIN 7.9 g/dL (12.0-16.0); LYMPHOCYTES # (AUTO) 2.9 K/uL (1.0-5.5); LYMPHOCYTES % (AUTO) 27.7 % (20.5-51.5); MEAN CORPUSCULAR HEMOGLOBIN 32 pg (27-31); MEAN CORPUSCULAR HGB CONC 35 % (32-36); MEAN CORPUSCULAR VOLUME 89 fL (79.0-98.0); MONOCYTES # (AUTO) 0.7 K/uL (0.0-1.0); MONOCYTES % (AUTO) 6.5 % (1.7-9.3); NEUTROPHILS # (AUTO) 6.4 K/uL (1.8-7.7); NEUTROPHILS % (AUTO) 60.8 % (40.0-70.0); PLATELET COUNT (AUTO) 155 K/uL (130-430); RED BLOOD CELL COUNT(AUTO) 2.51 MIL/uL (4.2-6.2); RED CELL DISTRIBUTION WIDTH 16.8 % (9.0-15.0); WHITE BLOOD COUNT (AUTO) 10.5 K/uL (4.8-10.8)
[2023-09-17 08:22] LABS: ALANINE AMINOTRANSFERASE 35 U/L (12-78); ALBUMIN 1.2 g/dL (3.4-4.8); ANION GAP 11 (5-15); ASPARTATE AMINOTRANSFERASE 71 U/L (10-37); CALCIUM 7.7 mg/dL (8.4-11.0); CARBON DIOXIDE 24 mmol/L (23-29); CHLORIDE 100 mmol/L (98-107); CREATININE 3.17 mg/dL (0.55-1.30); GLUCOSE 164 mg/dL (74-106); POTASSIUM 3.8 mmol/L (3.5-5.1); SODIUM SERUM 135 mmol/L (136-145); TOTAL BILIRUBIN 0.8 mg/dL (0.0-1.0); TOTAL PROTEIN, SERUM 4.8 g/dL (6.4-8.3); UREA NITROGEN, BLOOD 50 mg/dL (8-21)
[2023-09-17] MEDS: ATORVASTATIN 10 MG TABLET PO SCH (09:18)
[2023-09-17] MEDS: ASPIRIN 81 MG TAB.CHEW NG SCH (09:18)
[2023-09-17] MEDS: levETIRAcetam 1,000 MG IV BAG 100 ML IV SCH ×2 (09:18→20:40)
[2023-09-17] MEDS: PANTOPRAZOLE SODIUM 40 MG/VIAL (PROTONIX) IVP SCH ×2 (09:19→20:40)
[2023-09-17] MEDS: D5NS 1,000 ML IV SCH (09:23)
[2023-09-17] MEDS: ALBUMIN HUMAN 25% 50 ML IV SCH ×2 (13:41→19:00)
[2023-09-18] VITALS (33 sets, daily range): BP systolic 125–159; PULSE 91–113; RESP 18–28; TEMP 97–98.5; O2SAT 92–97
[2023-09-18] MEDS: LevALBUTEROL HCL 1.25 MG/0.5 ML *CONC.* VIAL.NEB (XOPENEX CONC.) INH SCH ×4 (00:41→20:00)
[2023-09-18] MEDS: INSULIN REGULAR, HUMAN 100 UNITS/ML, 3 ML VIAL (humuLIN R) SUBCUT PRN ×5 (01:20→23:08)
[2023-09-18] MEDS: ALBUMIN HUMAN 25% 50 ML IV SCH (02:00)
[2023-09-18] MEDS: D5NS 1,000 ML IV SCH (03:35)
[2023-09-18 06:59] LABS: ALANINE AMINOTRANSFERASE 25 U/L (12-78); ALBUMIN 1.7 g/dL (3.4-4.8); ANION GAP 13 (5-15); ASPARTATE AMINOTRANSFERASE 47 U/L (10-37); CALCIUM 7.8 mg/dL (8.4-11.0); CARBON DIOXIDE 22 mmol/L (23-29); CHLORIDE 96 mmol/L (98-107); CREATININE 3.75 mg/dL (0.55-1.30); GLUCOSE 196 mg/dL (74-106); POTASSIUM 3.8 mmol/L (3.5-5.1); SODIUM SERUM 131 mmol/L (136-145); TOTAL BILIRUBIN 1.1 mg/dL (0.0-1.0); TOTAL PROTEIN, SERUM 5.3 g/dL (6.4-8.3); UREA NITROGEN, BLOOD 61 mg/dL (8-21)
[2023-09-18 07:27] LABS: BASOPHILS # (AUTO) 0.1 K/uL (0.0-0.2); BASOPHILS % (AUTO) 0.9 % (0.0-2.0); EOSINOPHILS # (AUTO) 0.5 K/uL (0.0-0.4); EOSINOPHILS % (AUTO) 4.2 % (0.0-4.0); HEMATOCRIT 22.9 % (36-48); HEMOGLOBIN 7.8 g/dL (12.0-16.0); LYMPHOCYTES # (AUTO) 2.3 K/uL (1.0-5.5); LYMPHOCYTES % (AUTO) 18.7 % (20.5-51.5); MEAN CORPUSCULAR HEMOGLOBIN 30 pg (27-31); MEAN CORPUSCULAR HGB CONC 34 % (32-36); MEAN CORPUSCULAR VOLUME 89 fL (79.0-98.0); MONOCYTES # (AUTO) 1.1 K/uL (0.0-1.0); NEUTROPHILS # (AUTO) 8.2 K/uL (1.8-7.7); PLATELET COUNT (AUTO) 193 K/uL (130-430); RED BLOOD CELL COUNT(AUTO) 2.57 MIL/uL (4.2-6.2); RED CELL DISTRIBUTION WIDTH 17.1 % (9.0-15.0); WHITE BLOOD COUNT (AUTO) 12.2 K/uL (4.8-10.8)
[2023-09-18 08:20] LABS: NEUTROPHILS % (AUTO) 67.2 % (40.0-70.0)
[2023-09-18] MEDS: PANTOPRAZOLE SODIUM 40 MG/VIAL (PROTONIX) IVP SCH ×2 (08:25→20:12)
[2023-09-18] MEDS: ATORVASTATIN 10 MG TABLET PO SCH (08:25)
[2023-09-18] MEDS: ASPIRIN 81 MG TAB.CHEW NG SCH (08:26)
[2023-09-18] MEDS: levETIRAcetam 1,000 MG IV BAG 100 ML IV SCH ×2 (08:28→20:12)
[2023-09-18 10:09] LABS: ABG O2 SAT% ESTIMATE 93.5 % (94.0-100.0); BLOOD GAS BASE EXCESS -1.3 mmol/L (-3.0-3.0); BLOOD GAS HCO3 21.6 mmol/L (21.0-27.0); BLOOD GAS PCO2 31.5 mmHg (35.0-45.0); BLOOD GAS PH 7.454 (7.350-7.450); BLOOD GAS PO2 63.3 mmHg (75.0-100.0)
[2023-09-18 10:12] LABS: ALLEN'S TEST POSITIVE (P)
[2023-09-18] MEDS: HEPARIN SODIUM,PORCINE 5,000 UNITS/ML VIAL MC PRN (16:39)
[2023-09-19] VITALS (35 sets, daily range): BP systolic 106–162; PULSE 95–118; RESP 20–30; TEMP 96.8–98.3; O2SAT 92–97
[2023-09-19] MEDS: LevALBUTEROL HCL 1.25 MG/0.5 ML *CONC.* VIAL.NEB (XOPENEX CONC.) INH SCH ×4 (00:50→19:40)
[2023-09-19] MEDS: D5NS 1,000 ML IV SCH ×2 (00:54→21:49)
[2023-09-19] MEDS: INSULIN REGULAR, HUMAN 100 UNITS/ML, 3 ML VIAL (humuLIN R) SUBCUT PRN ×2 (05:14→23:11)
[2023-09-19 06:47] LABS: ALBUMIN 1.5 g/dL (3.4-4.8); ANION GAP 11 (5-15); CALCIUM 7.9 mg/dL (8.4-11.0); CARBON DIOXIDE 25 mmol/L (23-29); CHLORIDE 98 mmol/L (98-107); CREATININE 3.73 mg/dL (0.55-1.30); GLUCOSE 239 mg/dL (74-106); SODIUM SERUM 134 mmol/L (136-145); TOTAL PROTEIN, SERUM 5.3 g/dL (6.4-8.3); UREA NITROGEN, BLOOD 59 mg/dL (8-21)
[2023-09-19 07:18] LABS: HEMOGLOBIN 7.2 g/dL (12.0-16.0); MEAN CORPUSCULAR HEMOGLOBIN 30 pg (27-31); MEAN CORPUSCULAR HGB CONC 34 % (32-36); MEAN CORPUSCULAR VOLUME 88 fL (79.0-98.0); PLATELET COUNT (AUTO) 268 K/uL (130-430); RED BLOOD CELL COUNT(AUTO) 2.44 MIL/uL (4.2-6.2); RED CELL DISTRIBUTION WIDTH 17.2 % (9.0-15.0); WHITE BLOOD COUNT (AUTO) 13.4 K/uL (4.8-10.8)
[2023-09-19 07:34] LABS: CLARITY/URINE TURBID (CLEAR); COLOR,URINE BROWN (YELLOW)
[2023-09-19 07:35] LABS: GLUCOSE,URINE NEGATIVE (NEGATIVE); KETONES,URINE NEGATIVE (NEGATIVE); PROTEIN URINE 3+ (NEGATIVE)
[2023-09-19 07:36] LABS: BLOOD, URINE 4+ (NEGATIVE)
[2023-09-19 07:37] LABS: LEUKOCYTE ESTERASE ,URINE 3+ (NEGATIVE); NITRITE, URINE NEGATIVE (NEGATIVE); UROBILINOGEN,URINE 0.2 (0.2-1.0)
[2023-09-19 07:38] LABS: HEMATOCRIT 21.5 % (36-48)
[2023-09-19 07:39] LABS: BILIRUBIN,URINE 2+ (NEGATIVE)
[2023-09-19 07:52] LABS: RBC,URINE >100 /HPF (0-3)
[2023-09-19 07:53] LABS: WBC,URINE 50-80 /HPF (0-3)
[2023-09-19 07:54] LABS: POTASSIUM 4.1 mmol/L (3.5-5.1)
[2023-09-19 07:54] LABS: BACTERIA,URINE MODERATE /HPF (None Seen)
[2023-09-19 07:55] LABS: URINE AMORPHOUS PHOSPHATES 1+ /HPF (None Seen)
[2023-09-19 08:16] LABS: BASOPHILS % (MANUAL) 0 % (0-2); EOSINOPHILS % (MANUAL) 1 % (0-7); LYMPHOCYTES % (MANUAL) 8 % (20-46); MONOCYTES % (MANUAL) 11 % (0-11)
[2023-09-19 08:17] LABS: ANISOCYTOSIS 1+; PLATELET ESTIMATE ADEQUATE (ADEQUATE)
[2023-09-19] MEDS: levETIRAcetam 1,000 MG IV BAG 100 ML IV SCH ×2 (09:04→20:51)
[2023-09-19] MEDS: ATORVASTATIN 10 MG TABLET PO SCH (09:04)
[2023-09-19] MEDS: ASPIRIN 81 MG TAB.CHEW NG SCH (09:05)
[2023-09-19] MEDS: PANTOPRAZOLE SODIUM 40 MG/VIAL (PROTONIX) IVP SCH ×2 (09:05→20:51)
[2023-09-19 09:25] LABS: ALANINE AMINOTRANSFERASE 21 U/L (12-78); ASPARTATE AMINOTRANSFERASE 25 U/L (10-37)
[2023-09-19] MEDS: CEFEPIME 2 GM in D5W 100 ML IV SCH (12:01)
[2023-09-19] MEDS: HEPARIN SODIUM,PORCINE 5,000 UNITS/ML VIAL MC PRN (12:02)
[2023-09-19] MEDS: EPOETIN ALFA-EPBX 4,000 UNITS/ML VIAL SUBCUT SCH (18:00)
[2023-09-20] VITALS (36 sets, daily range): BP systolic 106–162; PULSE 90–115; RESP 6–25; TEMP 97.2–98.3; O2SAT 93–98
[2023-09-20] MEDS: INSULIN REGULAR, HUMAN 100 UNITS/ML, 3 ML VIAL (humuLIN R) SUBCUT PRN ×3 (05:04→17:32)
[2023-09-20 05:44] LABS: BASOPHILS # (AUTO) 0.2 K/uL (0.0-0.2); BASOPHILS % (AUTO) 1.2 % (0.0-2.0); EOSINOPHILS # (AUTO) 0.3 K/uL (0.0-0.4); EOSINOPHILS % (AUTO) 2.3 % (0.0-4.0); LYMPHOCYTES # (AUTO) 2.8 K/uL (1.0-5.5); LYMPHOCYTES % (AUTO) 21.4 % (20.5-51.5); MEAN CORPUSCULAR HEMOGLOBIN 28 pg (27-31); MEAN CORPUSCULAR HGB CONC 32 % (32-36); MEAN CORPUSCULAR VOLUME 88 fL (79.0-98.0); MONOCYTES # (AUTO) 0.9 K/uL (0.0-1.0); MONOCYTES % (AUTO) 6.9 % (1.7-9.3); NEUTROPHILS # (AUTO) 8.8 K/uL (1.8-7.7); NEUTROPHILS % (AUTO) 68.2 % (40.0-70.0); PLATELET COUNT (AUTO) 300 K/uL (130-430); RED BLOOD CELL COUNT(AUTO) 2.42 MIL/uL (4.2-6.2); RED CELL DISTRIBUTION WIDTH 16.7 % (9.0-15.0)
[2023-09-20 06:05] LABS: HEMATOCRIT 21.3 % (36-48); HEMOGLOBIN 6.9 g/dL (12.0-16.0)
[2023-09-20 06:25] LABS: ANION GAP 10 (5-15); CALCIUM 8.5 mg/dL (8.4-11.0); CARBON DIOXIDE 24 mmol/L (23-29); CHLORIDE 100 mmol/L (98-107); CREATININE 2.78 mg/dL (0.55-1.30); GLUCOSE 179 mg/dL (74-106); POTASSIUM 4.3 mmol/L (3.5-5.1); SODIUM SERUM 134 mmol/L (136-145); UREA NITROGEN, BLOOD 43 mg/dL (8-21)
[2023-09-20] MEDS: LevALBUTEROL HCL 1.25 MG/0.5 ML *CONC.* VIAL.NEB (XOPENEX CONC.) INH SCH ×3 (07:58→19:32)
[2023-09-20] MEDS: ASPIRIN 81 MG TAB.CHEW NG SCH (08:34)
[2023-09-20] MEDS: ATORVASTATIN 10 MG TABLET PO SCH (08:35)
[2023-09-20] MEDS: PANTOPRAZOLE SODIUM 40 MG/VIAL (PROTONIX) IVP SCH ×2 (08:35→20:39)
[2023-09-20] MEDS: levETIRAcetam 1,000 MG IV BAG 100 ML IV SCH ×2 (08:36→20:39)
[2023-09-20] MEDS: CEFEPIME 2 GM in D5W 100 ML IV SCH (12:29)
[2023-09-20] MEDS: D5NS 1,000 ML IV SCH (17:48)
[2023-09-21] VITALS (36 sets, daily range): BP systolic 90–192; PULSE 86–135; RESP 18–42; TEMP 96.9–98.6; O2SAT 92–96
[2023-09-21] MEDS: LevALBUTEROL HCL 1.25 MG/0.5 ML *CONC.* VIAL.NEB (XOPENEX CONC.) INH SCH ×4 (01:04→19:40)
[2023-09-21 04:24] LABS: BASOPHILS # (AUTO) 0.1 K/uL (0.0-0.2); BASOPHILS % (AUTO) 0.7 % (0.0-2.0); EOSINOPHILS # (AUTO) 0.2 K/uL (0.0-0.4); HEMATOCRIT 27.4 % (36-48); HEMOGLOBIN 8.7 g/dL (12.0-16.0); LYMPHOCYTES # (AUTO) 2.3 K/uL (1.0-5.5); LYMPHOCYTES % (AUTO) 19.9 % (20.5-51.5); MEAN CORPUSCULAR HEMOGLOBIN 27 pg (27-31); MEAN CORPUSCULAR HGB CONC 32 % (32-36); MEAN CORPUSCULAR VOLUME 86 fL (79.0-98.0); MONOCYTES # (AUTO) 0.8 K/uL (0.0-1.0); MONOCYTES % (AUTO) 6.8 % (1.7-9.3); NEUTROPHILS # (AUTO) 8.2 K/uL (1.8-7.7); NEUTROPHILS % (AUTO) 70.6 % (40.0-70.0); PLATELET COUNT (AUTO) 343 K/uL (130-430); RED BLOOD CELL COUNT(AUTO) 3.18 MIL/uL (4.2-6.2); RED CELL DISTRIBUTION WIDTH 16.3 % (9.0-15.0); WHITE BLOOD COUNT (AUTO) 11.6 K/uL (4.8-10.8)
[2023-09-21 04:43] LABS: INR 1.1 (0.8-1.2); PROTHROMBIN TIME 11.2 SECS (9.5-12.5)
[2023-09-21 04:49] LABS: ANION GAP 13 (5-15); CALCIUM 8.4 mg/dL (8.4-11.0); CARBON DIOXIDE 24 mmol/L (23-29); CHLORIDE 98 mmol/L (98-107); CREATININE 3.42 mg/dL (0.55-1.30); GLUCOSE 180 mg/dL (74-106); POTASSIUM 4.8 mmol/L (3.5-5.1); SODIUM SERUM 135 mmol/L (136-145); UREA NITROGEN, BLOOD 59 mg/dL (8-21)
[2023-09-21] MEDS ORDERED: VANCOMYCIN HCL 1 GM/NS PREMIX 250 ML IV ONE (07:00)
[2023-09-21] MEDS ORDERED: SIMETHICONE 40 MG/0.6 ML ML ONE (07:35)
[2023-09-21] MEDS ORDERED: MIDAZOLAM HCL 5 MG/5 ML VIAL ONE (07:36)
[2023-09-21] MEDS ORDERED: fentaNYL CITRATE/PF 100 MCG/2 ML AMP ONE (07:36)
[2023-09-21] MEDS: ASPIRIN 81 MG TAB.CHEW NG SCH (08:47)
[2023-09-21] MEDS: PANTOPRAZOLE SODIUM 40 MG/VIAL (PROTONIX) IVP SCH ×2 (08:47→20:06)
[2023-09-21] MEDS: ATORVASTATIN 10 MG TABLET PO SCH (08:47)
[2023-09-21] MEDS: levETIRAcetam 1,000 MG IV BAG 100 ML IV SCH ×2 (08:48→20:06)
[2023-09-21] MEDS: INSULIN REGULAR, HUMAN 100 UNITS/ML, 3 ML VIAL (humuLIN R) SUBCUT PRN (12:07)
[2023-09-21] MEDS: CEFEPIME 2 GM in D5W 100 ML IV SCH (16:52)
[2023-09-21] MEDS: EPOETIN ALFA-EPBX 4,000 UNITS/ML VIAL SUBCUT SCH (18:23)
[2023-09-21] MEDS: D5NS 1,000 ML IV SCH (20:07)
[2023-09-21] MEDS: HEPARIN SODIUM,PORCINE 5,000 UNITS/ML VIAL MC PRN (20:42)
[2023-09-21] MEDS ORDERED: hydrALAZINE HCL 20 MG/ML VIAL IVP PRN (22:15)
[2023-09-21] MEDS ORDERED: HYDROmorphone 2 MG/ML VIAL ONE (22:20)
[2023-09-21] MEDS ORDERED: hydrALAZINE HCL 20 MG/ML VIAL ONE (22:20)
[2023-09-21] MEDS: HYDROmorphone 1 MG/ML INJ. CARTRIDGE IVP PRN (22:31)
[2023-09-21] MEDS ORDERED: dilTIAZem HCL IVP 5 MG/ML VIAL IVP ONE (23:00)
[2023-09-21] MEDS ORDERED: dilTIAZem HCL IVP 5 MG/ML VIAL ONE (23:07)
[2023-09-21] MEDS ORDERED: ALBUMIN HUMAN 25% 100 ML IV ONE (23:39)
[2023-09-21] MEDS ORDERED: ALBUMIN HUMAN 25% 50 ML IV ONE ×2 (23:45)
[2023-09-22] VITALS (36 sets, daily range): BP systolic 91–158; PULSE 83–117; RESP 18–27; TEMP 96.1–98.6; O2SAT 91–98
[2023-09-22] MEDS: LevALBUTEROL HCL 1.25 MG/0.5 ML *CONC.* VIAL.NEB (XOPENEX CONC.) INH SCH ×4 (00:45→19:52)
[2023-09-22 04:27] LABS: BASOPHILS # (AUTO) 0.1 K/uL (0.0-0.2); BASOPHILS % (AUTO) 0.8 % (0.0-2.0); EOSINOPHILS # (AUTO) 0.3 K/uL (0.0-0.4); EOSINOPHILS % (AUTO) 3.3 % (0.0-4.0); HEMATOCRIT 26.1 % (36-48); HEMOGLOBIN 8.3 g/dL (12.0-16.0); LYMPHOCYTES # (AUTO) 1.3 K/uL (1.0-5.5); LYMPHOCYTES % (AUTO) 12.4 % (20.5-51.5); MEAN CORPUSCULAR HEMOGLOBIN 28 pg (27-31); MEAN CORPUSCULAR HGB CONC 32 % (32-36); MEAN CORPUSCULAR VOLUME 87 fL (79.0-98.0); MONOCYTES # (AUTO) 0.6 K/uL (0.0-1.0); MONOCYTES % (AUTO) 5.5 % (1.7-9.3); NEUTROPHILS # (AUTO) 8.1 K/uL (1.8-7.7); PLATELET COUNT (AUTO) 341 K/uL (130-430); RED BLOOD CELL COUNT(AUTO) 3.01 MIL/uL (4.2-6.2); RED CELL DISTRIBUTION WIDTH 16.3 % (9.0-15.0); WHITE BLOOD COUNT (AUTO) 10.4 K/uL (4.8-10.8)
[2023-09-22 04:30] LABS: ANION GAP 9 (5-15); CALCIUM 8.5 mg/dL (8.4-11.0); CARBON DIOXIDE 25 mmol/L (23-29); CHLORIDE 98 mmol/L (98-107); CREATININE 2.82 mg/dL (0.55-1.30); GLUCOSE 130 mg/dL (74-106); POTASSIUM 4.4 mmol/L (3.5-5.1); SODIUM SERUM 132 mmol/L (136-145); UREA NITROGEN, BLOOD 44 mg/dL (8-21)
[2023-09-22] MEDS: ASPIRIN 81 MG TAB.CHEW NG SCH (09:00)
[2023-09-22] MEDS: PANTOPRAZOLE SODIUM 40 MG/VIAL (PROTONIX) IVP SCH ×2 (10:18→19:46)
[2023-09-22] MEDS: levETIRAcetam 1,000 MG IV BAG 100 ML IV SCH ×2 (10:18→19:46)
[2023-09-22] MEDS: ATORVASTATIN 10 MG TABLET PO SCH (10:18)
[2023-09-22] MEDS: D5NS 1,000 ML IV SCH (10:19)
[2023-09-22] MEDS: AMIODARONE HCL 450 MG in D5W 241 ML IV SCH ×2 (10:26→19:45)
[2023-09-22] MEDS ORDERED: SEVOFLURANE 15 MIN GAS INH ONE (12:20)
[2023-09-22] MEDS ORDERED: ROCURONIUM BROMIDE 10 MG/ML (ZEMURON) ONE (12:20)
[2023-09-22] MEDS ORDERED: MIDAZOLAM HCL 5 MG/5 ML VIAL IVP PRN (13:45)
[2023-09-22] MEDS ORDERED: MORPHINE 4 MG INJ. 4 MG/ML VIAL IVP PRN (13:45)
[2023-09-22] MEDS ORDERED: METOCLOPRAMIDE HCL 10 MG/2 ML VIAL IVP PRN (13:45)
[2023-09-22] MEDS ORDERED: ONDANSETRON HCL 4 MG/2 ML VIAL IVP PRN (13:45)
[2023-09-22] MEDS ORDERED: ENOXAPARIN SODIUM 40 MG/0.4 ML SYRINGE SUBCUT SCH (16:00)
[2023-09-22] MEDS ORDERED: ENOXAPARIN SODIUM 30 MG/0.3 ML SYRINGE SUBCUT ONE (16:15)
[2023-09-22] MEDS: ERTAPENEM SODIUM 0.5 GM in NS 50 ML IV SCH (17:12)
[2023-09-22] MEDS ORDERED: ENOXAPARIN SODIUM 30 MG/0.3 ML SYRINGE ONE (17:40)
[2023-09-22] MEDS: INSULIN REGULAR, HUMAN 100 UNITS/ML, 3 ML VIAL (humuLIN R) SUBCUT PRN (17:54)
[2023-09-23] VITALS (37 sets, daily range): BP systolic 94–172; PULSE 82–111; RESP 18–24; TEMP 96.8–97.8; O2SAT 94–98
[2023-09-23] MEDS: INSULIN REGULAR, HUMAN 100 UNITS/ML, 3 ML VIAL (humuLIN R) SUBCUT PRN ×5 (00:16→23:44)
[2023-09-23] MEDS: HYDROmorphone 1 MG/ML INJ. CARTRIDGE IVP PRN (00:35)
[2023-09-23] MEDS: ACETAMINOPHEN 325 MG TABLET PO PRN (00:36)
[2023-09-23] MEDS: LevALBUTEROL HCL 1.25 MG/0.5 ML *CONC.* VIAL.NEB (XOPENEX CONC.) INH SCH ×4 (00:43→19:36)
[2023-09-23 04:25] LABS: BASOPHILS # (AUTO) 0.1 K/uL (0.0-0.2); BASOPHILS % (AUTO) 0.9 % (0.0-2.0); EOSINOPHILS # (AUTO) 0.1 K/uL (0.0-0.4); EOSINOPHILS % (AUTO) 1.3 % (0.0-4.0); HEMATOCRIT 24.5 % (36-48); HEMOGLOBIN 7.9 g/dL (12.0-16.0); LYMPHOCYTES # (AUTO) 1.7 K/uL (1.0-5.5); LYMPHOCYTES % (AUTO) 17.1 % (20.5-51.5); MEAN CORPUSCULAR HEMOGLOBIN 28 pg (27-31); MEAN CORPUSCULAR HGB CONC 32 % (32-36); MEAN CORPUSCULAR VOLUME 88 fL (79.0-98.0); MONOCYTES # (AUTO) 0.6 K/uL (0.0-1.0); MONOCYTES % (AUTO) 5.5 % (1.7-9.3); NEUTROPHILS # (AUTO) 7.6 K/uL (1.8-7.7); NEUTROPHILS % (AUTO) 75.2 % (40.0-70.0); PLATELET COUNT (AUTO) 377 K/uL (130-430); RED CELL DISTRIBUTION WIDTH 16.9 % (9.0-15.0); WHITE BLOOD COUNT (AUTO) 10.1 K/uL (4.8-10.8)
[2023-09-23 04:37] LABS: ANION GAP 12 (5-15); CALCIUM 8.3 mg/dL (8.4-11.0); CARBON DIOXIDE 22 mmol/L (23-29); CHLORIDE 100 mmol/L (98-107); CREATININE 3.72 mg/dL (0.55-1.30); GLUCOSE 219 mg/dL (74-106); POTASSIUM 4.3 mmol/L (3.5-5.1); SODIUM SERUM 134 mmol/L (136-145); UREA NITROGEN, BLOOD 57 mg/dL (8-21)
[2023-09-23 04:44] LABS: ALANINE AMINOTRANSFERASE 16 U/L (12-78); ALBUMIN 1.4 g/dL (3.4-4.8); ASPARTATE AMINOTRANSFERASE 24 U/L (10-37); TOTAL BILIRUBIN 0.8 mg/dL (0.0-1.0); TOTAL PROTEIN, SERUM 5.2 g/dL (6.4-8.3)
[2023-09-23] MEDS: D5NS 1,000 ML IV SCH (05:17)
[2023-09-23] MEDS: ENOXAPARIN SODIUM 30 MG/0.3 ML SYRINGE SUBCUT SCH (08:06)
[2023-09-23] MEDS: ASPIRIN 81 MG TAB.CHEW NG SCH (08:07)
[2023-09-23] MEDS: PANTOPRAZOLE SODIUM 40 MG/VIAL (PROTONIX) IVP SCH ×2 (08:07→20:19)
[2023-09-23] MEDS: ATORVASTATIN 10 MG TABLET PO SCH (08:07)
[2023-09-23] MEDS: levETIRAcetam 1,000 MG IV BAG 100 ML IV SCH ×2 (08:08→20:19)
[2023-09-23] MEDS: AMIODARONE HCL 200 MG TABLET PO SCH ×2 (09:48→20:20)
[2023-09-23] MEDS: HEPARIN SODIUM,PORCINE 5,000 UNITS/ML VIAL MC PRN (09:58)
[2023-09-23] MEDS: FLUCONAZOLE 200 mg/ NS 100 ML IV SCH (11:15)
[2023-09-23] MEDS: ERTAPENEM SODIUM 0.5 GM in NS 50 ML IV SCH (12:55)
[2023-09-23 13:53] LABS: BLOOD GAS BASE EXCESS 0.4 mmol/L (-3.0-3.0); BLOOD GAS HCO3 22.7 mmol/L (21.0-27.0); BLOOD GAS PCO2 30.4 mmHg (35.0-45.0); BLOOD GAS PH 7.491 (7.350-7.450); BLOOD GAS PO2 62.4 mmHg (75.0-100.0)
[2023-09-23 13:54] LABS: ABG O2 SAT% ESTIMATE 93.8 % (94.0-100.0); ALLEN'S TEST POSITIVE (P)
[2023-09-23] MEDS: EPOETIN ALFA-EPBX 4,000 UNITS/ML VIAL SUBCUT SCH (17:03)
[2023-09-24] VITALS (35 sets, daily range): BP systolic 111–166; PULSE 77–96; RESP 18–30; TEMP 96.9–97.6; O2SAT 94–100
[2023-09-24] MEDS: LevALBUTEROL HCL 1.25 MG/0.5 ML *CONC.* VIAL.NEB (XOPENEX CONC.) INH SCH ×4 (00:54→19:37)
[2023-09-24 05:28] LABS: BASOPHILS # (AUTO) 0.1 K/uL (0.0-0.2); EOSINOPHILS # (AUTO) 0.3 K/uL (0.0-0.4); HEMOGLOBIN 8.2 g/dL (12.0-16.0)
[2023-09-24 05:30] LABS: BASOPHILS % (AUTO) 0.6 % (0.0-2.0); EOSINOPHILS % (AUTO) 2.4 % (0.0-4.0); LYMPHOCYTES # (AUTO) 1.6 K/uL (1.0-5.5); LYMPHOCYTES % (AUTO) 14.9 % (20.5-51.5); MEAN CORPUSCULAR HEMOGLOBIN 28 pg (27-31); MEAN CORPUSCULAR HGB CONC 33 % (32-36); MEAN CORPUSCULAR VOLUME 86 fL (79.0-98.0); MONOCYTES # (AUTO) 0.7 K/uL (0.0-1.0); NEUTROPHILS # (AUTO) 8.2 K/uL (1.8-7.7); NEUTROPHILS % (AUTO) 76.1 % (40.0-70.0); PLATELET COUNT (AUTO) 404 K/uL (130-430); RED CELL DISTRIBUTION WIDTH 16.3 % (9.0-15.0); WHITE BLOOD COUNT (AUTO) 10.8 K/uL (4.8-10.8)
[2023-09-24] MEDS: INSULIN REGULAR, HUMAN 100 UNITS/ML, 3 ML VIAL (humuLIN R) SUBCUT PRN ×4 (05:42→23:48)
[2023-09-24 05:45] LABS: ALANINE AMINOTRANSFERASE 19 U/L (12-78); ALBUMIN 1.5 g/dL (3.4-4.8); ANION GAP 12 (5-15); ASPARTATE AMINOTRANSFERASE 31 U/L (10-37); CALCIUM 8.4 mg/dL (8.4-11.0); CARBON DIOXIDE 22 mmol/L (23-29); CHLORIDE 99 mmol/L (98-107); CREATININE 3.23 mg/dL (0.55-1.30); GLUCOSE 178 mg/dL (74-106); POTASSIUM 3.9 mmol/L (3.5-5.1); SODIUM SERUM 133 mmol/L (136-145); TOTAL BILIRUBIN 0.6 mg/dL (0.0-1.0); TOTAL PROTEIN, SERUM 5.3 g/dL (6.4-8.3); UREA NITROGEN, BLOOD 54 mg/dL (8-21)
[2023-09-24] MEDS: ASPIRIN 81 MG TAB.CHEW NG SCH (08:03)
[2023-09-24] MEDS: ENOXAPARIN SODIUM 30 MG/0.3 ML SYRINGE SUBCUT SCH (08:03)
[2023-09-24] MEDS: ATORVASTATIN 10 MG TABLET PO SCH (08:04)
[2023-09-24] MEDS: PANTOPRAZOLE SODIUM 40 MG/VIAL (PROTONIX) IVP SCH ×2 (08:04→21:32)
[2023-09-24] MEDS: AMIODARONE HCL 200 MG TABLET PO SCH ×2 (08:04→21:32)
[2023-09-24] MEDS: levETIRAcetam 1,000 MG IV BAG 100 ML IV SCH ×2 (08:05→21:31)
[2023-09-24] MEDS: FLUCONAZOLE 200 mg/ NS 100 ML IV SCH (11:04)
[2023-09-24] MEDS: ERTAPENEM SODIUM 0.5 GM in NS 50 ML IV SCH (12:14)
[2023-09-24] MEDS: APIXABAN 2.5 MG TABLET PO SCH (21:34)
[2023-09-25] VITALS (35 sets, daily range): BP systolic 138–165; PULSE 77–93; RESP 18–38; TEMP 96.8–97.5; O2SAT 93–99
[2023-09-25] MEDS: LevALBUTEROL HCL 1.25 MG/0.5 ML *CONC.* VIAL.NEB (XOPENEX CONC.) INH SCH ×4 (01:37→19:57)
[2023-09-25 05:30] LABS: BASOPHILS # (AUTO) 0.1 K/uL (0.0-0.2); BASOPHILS % (AUTO) 0.7 % (0.0-2.0); EOSINOPHILS # (AUTO) 0.3 K/uL (0.0-0.4); EOSINOPHILS % (AUTO) 3.3 % (0.0-4.0); HEMATOCRIT 26.1 % (36-48); HEMOGLOBIN 8.3 g/dL (12.0-16.0); LYMPHOCYTES # (AUTO) 1.4 K/uL (1.0-5.5); LYMPHOCYTES % (AUTO) 13.3 % (20.5-51.5); MEAN CORPUSCULAR HEMOGLOBIN 28 pg (27-31); MEAN CORPUSCULAR HGB CONC 32 % (32-36); MEAN CORPUSCULAR VOLUME 87 fL (79.0-98.0); MONOCYTES # (AUTO) 0.7 K/uL (0.0-1.0); MONOCYTES % (AUTO) 6.7 % (1.7-9.3); NEUTROPHILS # (AUTO) 8.1 K/uL (1.8-7.7); PLATELET COUNT (AUTO) 452 K/uL (130-430); RED BLOOD CELL COUNT(AUTO) 3.01 MIL/uL (4.2-6.2); RED CELL DISTRIBUTION WIDTH 16.8 % (9.0-15.0); WHITE BLOOD COUNT (AUTO) 10.6 K/uL (4.8-10.8)
[2023-09-25 05:56] LABS: ALANINE AMINOTRANSFERASE 19 U/L (12-78); ALBUMIN 1.4 g/dL (3.4-4.8); ANION GAP 8 (5-15); ASPARTATE AMINOTRANSFERASE 24 U/L (10-37); CALCIUM 8.4 mg/dL (8.4-11.0); CARBON DIOXIDE 22 mmol/L (23-29); CHLORIDE 91 mmol/L (98-107); GLUCOSE 196 mg/dL (74-106); POTASSIUM 3.3 mmol/L (3.5-5.1); SODIUM SERUM 121 mmol/L (136-145); TOTAL BILIRUBIN 0.6 mg/dL (0.0-1.0); TOTAL PROTEIN, SERUM 5.4 g/dL (6.4-8.3); UREA NITROGEN, BLOOD 68 mg/dL (8-21)
[2023-09-25] MEDS: INSULIN REGULAR, HUMAN 100 UNITS/ML, 3 ML VIAL (humuLIN R) SUBCUT PRN ×3 (06:22→17:51)
[2023-09-25] MEDS: levETIRAcetam 1,000 MG IV BAG 100 ML IV SCH ×2 (08:37→20:45)
[2023-09-25] MEDS: PANTOPRAZOLE SODIUM 40 MG/VIAL (PROTONIX) IVP SCH ×2 (08:37→20:45)
[2023-09-25] MEDS: ASPIRIN 81 MG TAB.CHEW NG SCH (08:37)
[2023-09-25] MEDS: APIXABAN 2.5 MG TABLET PO SCH ×2 (08:38→20:48)
[2023-09-25] MEDS: ATORVASTATIN 10 MG TABLET PO SCH (08:38)
[2023-09-25] MEDS: AMIODARONE HCL 200 MG TABLET PO SCH ×2 (08:39→20:46)
[2023-09-25] MEDS: FLUCONAZOLE 200 mg/ NS 100 ML IV SCH (11:16)
[2023-09-25] MEDS ORDERED: ALBUMIN HUMAN 25% 200 ML IV ONE (13:00)
[2023-09-25] MEDS: HEPARIN SODIUM,PORCINE 5,000 UNITS/ML VIAL MC PRN (13:09)
[2023-09-25] MEDS: ERTAPENEM SODIUM 0.5 GM in NS 50 ML IV SCH (13:15)
[2023-09-26] VITALS (30 sets, daily range): BP systolic 140–169; PULSE 72–94; RESP 18–25; TEMP 97.1–98.8; O2SAT 93–99
[2023-09-26] MEDS: LevALBUTEROL HCL 1.25 MG/0.5 ML *CONC.* VIAL.NEB (XOPENEX CONC.) INH SCH ×4 (01:55→19:17)
[2023-09-26 04:50] LABS: BASOPHILS # (AUTO) 0.1 K/uL (0.0-0.2); EOSINOPHILS # (AUTO) 0.4 K/uL (0.0-0.4); EOSINOPHILS % (AUTO) 3.4 % (0.0-4.0); HEMATOCRIT 23.6 % (36-48); HEMOGLOBIN 7.7 g/dL (12.0-16.0); LYMPHOCYTES # (AUTO) 1.7 K/uL (1.0-5.5); LYMPHOCYTES % (AUTO) 15.7 % (20.5-51.5); MEAN CORPUSCULAR HEMOGLOBIN 28 pg (27-31); MEAN CORPUSCULAR HGB CONC 33 % (32-36); MEAN CORPUSCULAR VOLUME 86 fL (79.0-98.0); MONOCYTES # (AUTO) 0.7 K/uL (0.0-1.0); MONOCYTES % (AUTO) 5.9 % (1.7-9.3); NEUTROPHILS # (AUTO) 8.1 K/uL (1.8-7.7); PLATELET COUNT (AUTO) 493 K/uL (130-430); RED BLOOD CELL COUNT(AUTO) 2.74 MIL/uL (4.2-6.2); RED CELL DISTRIBUTION WIDTH 16.6 % (9.0-15.0)
[2023-09-26 05:26] LABS: ALANINE AMINOTRANSFERASE 16 U/L (12-78); ALBUMIN 1.8 g/dL (3.4-4.8); ANION GAP 12 (5-15); ASPARTATE AMINOTRANSFERASE 20 U/L (10-37); CALCIUM 8.6 mg/dL (8.4-11.0); CARBON DIOXIDE 25 mmol/L (23-29); CHLORIDE 96 mmol/L (98-107); CREATININE 3.23 mg/dL (0.55-1.30); GLUCOSE 180 mg/dL (74-106); POTASSIUM 4.1 mmol/L (3.5-5.1); SODIUM SERUM 133 mmol/L (136-145); TOTAL BILIRUBIN 0.6 mg/dL (0.0-1.0); TOTAL PROTEIN, SERUM 5.7 g/dL (6.4-8.3); UREA NITROGEN, BLOOD 60 mg/dL (8-21)
[2023-09-26] MEDS: ASPIRIN 81 MG TAB.CHEW NG SCH (08:25)
[2023-09-26] MEDS: AMIODARONE HCL 200 MG TABLET PO SCH (08:26)
[2023-09-26] MEDS: APIXABAN 2.5 MG TABLET PO SCH (08:28)
[2023-09-26] MEDS: ATORVASTATIN 10 MG TABLET PO SCH (08:28)
[2023-09-26] MEDS: PANTOPRAZOLE SODIUM 40 MG/VIAL (PROTONIX) IVP SCH (08:29)
[2023-09-26] MEDS: levETIRAcetam 1,000 MG IV BAG 100 ML IV SCH (08:29)
[2023-09-26] MEDS: FLUCONAZOLE 200 mg/ NS 100 ML IV SCH (12:02)
[2023-09-26] MEDS: INSULIN REGULAR, HUMAN 100 UNITS/ML, 3 ML VIAL (humuLIN R) SUBCUT PRN ×2 (12:17→18:20)
[2023-09-26] MEDS: ERTAPENEM SODIUM 0.5 GM in NS 50 ML IV SCH (15:22)
[2023-09-26] MEDS: EPOETIN ALFA-EPBX 4,000 UNITS/ML VIAL SUBCUT SCH (18:18)
== END 2023-09-26 20:45 | DRG 4 ==
LOC: SED 18:55 → SMU 21:22 → SIC 21:57 → STU 09-01 18:45 → SIC 09-08 13:09
PROVIDERS: ADMIT Family Medicine; ATTEND Family Medicine
PROC: 3E0A3GC Introduction of Other Therapeutic Substance into Bone Marrow, Percutaneous Approach (ICD-10-PCS; 2023-08-23)
PROC: 5A1D70Z Performance of Urinary Filtration, Intermittent, Less than 6 Hours Per Day (ICD-10-PCS; 2023-08-25)
PROC: 5A1955Z Respiratory Ventilation, Greater than 96 Consecutive Hours (ICD-10-PCS; 2023-08-26)
PROC: 0BH17EZ Insertion of Endotracheal Airway into Trachea, Via Natural or Artificial Opening (ICD-10-PCS; 2023-08-26)
PROC: 5A1D70Z Performance of Urinary Filtration, Intermittent, Less than 6 Hours Per Day (ICD-10-PCS; 2023-08-27)
PROC: 5A1D70Z Performance of Urinary Filtration, Intermittent, Less than 6 Hours Per Day (ICD-10-PCS; 2023-08-29)
PROC: 5A1D70Z Performance of Urinary Filtration, Intermittent, Less than 6 Hours Per Day (ICD-10-PCS; 2023-08-30)
PROC: 30233N1 Transfusion of Nonautologous Red Blood Cells into Peripheral Vein, Percutaneous Approach (ICD-10-PCS; 2023-08-31)
PROC: 5A1D70Z Performance of Urinary Filtration, Intermittent, Less than 6 Hours Per Day (ICD-10-PCS; 2023-09-01)
PROC: 5A1D70Z Performance of Urinary Filtration, Intermittent, Less than 6 Hours Per Day (ICD-10-PCS; 2023-09-03)
PROC: 5A1D70Z Performance of Urinary Filtration, Intermittent, Less than 6 Hours Per Day (ICD-10-PCS; 2023-09-06)
PROC: 4A00X4Z Measurement of Central Nervous Electrical Activity, External Approach (ICD-10-PCS; 2023-09-08)
PROC: 5A1D70Z Performance of Urinary Filtration, Intermittent, Less than 6 Hours Per Day (ICD-10-PCS; 2023-09-08)
PROC: 0BH17EZ Insertion of Endotracheal Airway into Trachea, Via Natural or Artificial Opening (ICD-10-PCS; 2023-09-08)
PROC: 5A1955Z Respiratory Ventilation, Greater than 96 Consecutive Hours (ICD-10-PCS; 2023-09-08)
PROC: 5A1D70Z Performance of Urinary Filtration, Intermittent, Less than 6 Hours Per Day (ICD-10-PCS; 2023-09-09)
PROC: 5A1D70Z Performance of Urinary Filtration, Intermittent, Less than 6 Hours Per Day (ICD-10-PCS; 2023-09-10)
PROC: 5A1D70Z Performance of Urinary Filtration, Intermittent, Less than 6 Hours Per Day (ICD-10-PCS; 2023-09-12)
PROC: 0JH63XZ Insertion of Tunneled Vascular Access Device into Chest Subcutaneous Tissue and Fascia, Percutaneous Approach (ICD-10-PCS; 2023-09-13)
PROC: 02HV33Z Insertion of Infusion Device into Superior Vena Cava, Percutaneous Approach (ICD-10-PCS; 2023-09-13)
PROC: B518ZZA Fluoroscopy of Superior Vena Cava, Guidance (ICD-10-PCS; 2023-09-13)
PROC: B548ZZA Ultrasonography of Superior Vena Cava, Guidance (ICD-10-PCS; 2023-09-13)
PROC: 5A1D70Z Performance of Urinary Filtration, Intermittent, Less than 6 Hours Per Day (ICD-10-PCS; 2023-09-13)
PROC: 5A1D70Z Performance of Urinary Filtration, Intermittent, Less than 6 Hours Per Day (ICD-10-PCS; 2023-09-15)
PROC: 5A1D70Z Performance of Urinary Filtration, Intermittent, Less than 6 Hours Per Day (ICD-10-PCS; 2023-09-16)
PROC: 5A1D70Z Performance of Urinary Filtration, Intermittent, Less than 6 Hours Per Day (ICD-10-PCS; 2023-09-18)
PROC: 06HY33Z Insertion of Infusion Device into Lower Vein, Percutaneous Approach (ICD-10-PCS; 2023-09-19)
PROC: B54CZZA Ultrasonography of Left Lower Extremity Veins, Guidance (ICD-10-PCS; 2023-09-19)
PROC: 5A1D70Z Performance of Urinary Filtration, Intermittent, Less than 6 Hours Per Day (ICD-10-PCS; 2023-09-19)
PROC: 0DH68UZ Insertion of Feeding Device into Stomach, Via Natural or Artificial Opening Endoscopic (ICD-10-PCS; 2023-09-21)
PROC: 0DJ08ZZ Inspection of Upper Intestinal Tract, Via Natural or Artificial Opening Endoscopic (ICD-10-PCS; 2023-09-21)
PROC: 5A1D70Z Performance of Urinary Filtration, Intermittent, Less than 6 Hours Per Day (ICD-10-PCS; 2023-09-21)
PROC: 0B110F4 Bypass Trachea to Cutaneous with Tracheostomy Device, Open Approach (ICD-10-PCS; principal; 2023-09-22 12:23)
PROC: 5A1D70Z Performance of Urinary Filtration, Intermittent, Less than 6 Hours Per Day (ICD-10-PCS; 2023-09-23)
PROC: 5A1D70Z Performance of Urinary Filtration, Intermittent, Less than 6 Hours Per Day (ICD-10-PCS; 2023-09-25)
DX: A41.9 Sepsis, unspecified organism (principal); G93.41 Metabolic encephalopathy; R65.21 Severe sepsis with septic shock; E43 Unspecified severe protein-calorie malnutrition; I46.9 Cardiac arrest, cause unspecified; J96.20 Acute and chronic respiratory failure, unspecified whether with hypoxia or hypercapnia; G93.1 Anoxic brain damage, not elsewhere classified; E87.4 Mixed disorder of acid-base balance; I48.92 Unspecified atrial flutter; N17.9 Acute kidney failure, unspecified; N39.0 Urinary tract infection, site not specified; E78.5 Hyperlipidemia, unspecified; E86.0 Dehydration; M79.7 Fibromyalgia; D64.9 Anemia, unspecified; B96.89 Other specified bacterial agents as the cause of diseases classified elsewhere; Z20.822 Contact with and (suspected) exposure to COVID-19; B96.4 Proteus (mirabilis) (morganii) as the cause of diseases classified elsewhere; R56.9 Unspecified convulsions; I12.9 Hypertensive chronic kidney disease with stage 1 through stage 4 chronic kidney disease, or unspecified chronic kidney disease; L89.90 Pressure ulcer of unspecified site, unspecified stage; E11.22 Type 2 diabetes mellitus with diabetic chronic kidney disease; N18.9 Chronic kidney disease, unspecified; E87.5 Hyperkalemia; E66.01 Morbid (severe) obesity due to excess calories; I48.91 Unspecified atrial fibrillation; Z68.36 Body mass index [BMI] 36.0-36.9, adult; Z88.0 Allergy status to penicillin; Z88.2 Allergy status to sulfonamides; Z88.8 Allergy status to other drugs, medicaments and biological substances; Z79.899 Other long term (current) drug therapy; Z79.82 Long term (current) use of aspirin
CPT/HCPCS: 36415; 36600; 70450-TC; 71045; 74018; 76000; 76376; 76770; 80048; 80053; 81000; 81001; 81015; 82140; 82150; 82550; 82607; 82728; 82746; 82800-TC; 82803; 82962; 83540; 83550; 83605; 83735; 83880; 84100; 84478; 84484; 85007; 85025; 85027; 85610-TC; 85730-TC; 86480; 86706; 86803; 86886; 86900; 86901; 86920; 87040; 87070-TC; 87081; 87086; 87205-TC; 87340; 90935; 90937; 92610-GN; 93005; 93306; 93970; 94002; 94003; 94640; 94664; 94760; 95816; 96361; 96365; 96375; 97110-GP; 97530-GP; 99291; C9113; G0378; J0360; J0610; J0692; J0696; J1170; J1335; J1450; J1644; J1650; J1815; J1885; J1953; J2020; J2060; J2185; J2250; J2270; J2704; J2997; J3010; J3370; J3465; J3475; J3480; J3490; J7050; J7060; J7131; J7612; P9021; P9046; Q5106

== ENCOUNTER 2023-10-08 14:22 | Emergency (ER) | payer OTHER, MEDICAID ==
[~2023-10-08] VITALS: Ht 167.6 cm; Wt 99.8 kg
[~2023-10-08 14:22] MED LIST: ASCO500C18 PO; BISA10SU77; CALC-740 PO; CIPR-260 PO; DIPH25TA62 PO; FENO145T PO; FLUT10.67 NAS; IPRA3AMP19 INH; LIP20 PO; LISI10TA29 PO; LORA10TA7 PO; MOM PO; MULT-1117 PO; NA P230E RC; PANT20TA2 PO; PREG50CA64 PO; SSREG; TRAM50TA PO; [UNRECOGNIZED DRUG - CODE] PO
[2023-10-08 14:24] VITALS: PULSE 93; RESP 16; TEMP 97.6; O2SAT 100
[2023-10-08 16:32] LABS: BASOPHILS % (AUTO) 0.3 % (0.0-2.0); EOSINOPHILS # (AUTO) 0.2 K/uL (0.0-0.4); EOSINOPHILS % (AUTO) 1.9 % (0.0-4.0); LYMPHOCYTES # (AUTO) 0.7 K/uL (1.0-5.5); LYMPHOCYTES % (AUTO) 6.2 % (20.5-51.5); MEAN CORPUSCULAR HEMOGLOBIN 28 pg (27-31); MEAN CORPUSCULAR HGB CONC 32 % (32-36); MEAN CORPUSCULAR VOLUME 87 fL (79.0-98.0); MONOCYTES # (AUTO) 0.7 K/uL (0.0-1.0); MONOCYTES % (AUTO) 5.9 % (1.7-9.3); NEUTROPHILS # (AUTO) 10.2 K/uL (1.8-7.7); NEUTROPHILS % (AUTO) 85.7 % (40.0-70.0); PLATELET COUNT (AUTO) 377 K/uL (130-430); RED BLOOD CELL COUNT(AUTO) 2.46 MIL/uL (4.2-6.2); RED CELL DISTRIBUTION WIDTH 17.4 % (9.0-15.0); WHITE BLOOD COUNT (AUTO) 11.9 K/uL (4.8-10.8)
[2023-10-08 16:40] LABS: HEMATOCRIT 21.5 % (36-48); HEMOGLOBIN 6.9 g/dL (12.0-16.0)
[2023-10-08 16:45] LABS: ANION GAP 13 (5-15); CALCIUM 8.8 mg/dL (8.4-11.0); CARBON DIOXIDE 25 mmol/L (23-29); CHLORIDE 94 mmol/L (98-107); CREATININE 2.97 mg/dL (0.55-1.30); GLUCOSE 177 mg/dL (74-106); POTASSIUM 3.5 mmol/L (3.5-5.1); SODIUM SERUM 132 mmol/L (136-145); UREA NITROGEN, BLOOD 43 mg/dL (8-21)
[2023-10-08 16:46] LABS: INR 1.2 (0.8-1.2); PROTHROMBIN TIME 12.6 SECS (9.5-12.5)
[2023-10-08 16:49] LABS: ALANINE AMINOTRANSFERASE 7 U/L (12-78); ALBUMIN 1.7 g/dL (3.4-4.8); AMYLASE 25 U/L (0-100); ASPARTATE AMINOTRANSFERASE 14 U/L (10-37); LIPASE 83 U/L (16-77); TOTAL BILIRUBIN 0.4 mg/dL (0.0-1.0); TOTAL PROTEIN, SERUM 5.6 g/dL (6.4-8.3)
[2023-10-08 21:34] VITALS: BP_SYST 118; RESP 16; TEMP 98.3; O2SAT 98
[2023-10-08 21:40] VITALS: PULSE 77
== END 2023-10-08 21:34 | disposition home or self-care (01) ==
LOC: SED 14:22
DX: D64.9 Anemia, unspecified (principal); R09.02 Hypoxemia; E11.9 Type 2 diabetes mellitus without complications; I10 Essential (primary) hypertension; E78.5 Hyperlipidemia, unspecified; Z88.0 Allergy status to penicillin; Z88.1 Allergy status to other antibiotic agents; Z88.2 Allergy status to sulfonamides; Z79.4 Long term (current) use of insulin; Z79.899 Other long term (current) drug therapy
CPT/HCPCS: 99285; 36430; 80053; 82150; 83690; 85025; 85610; 85730; 86886; 86900; 86901; 86920; 36415; 94640; 83605; 94002; P9021